=== PATIENT | male | born 1975 | race Caucasian/White ===

== ENCOUNTER 2020-03-30 21:47 | Emergency (ER) | payer SELFPAY ==
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
[2020-03-30 21:51] VITALS: BP 126/67; PULSE 60; RESP 20; TEMP 37.1; O2SAT 98
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
[2020-03-30 22:27] LABS: Hematocrit 43.4 % (42.0-52.0); Hemoglobin 14.5 g/dL (14.0-18.0); Mean Corpuscular HGB Conc 33.4 g/dl (32-36); Mean Corpuscular Hemoglobin 31.5 pg (26-34); Mean Corpuscular Volume 94.3 fl (80-100); Mean Platelet Volume 10.4 fl (7.4-10.4); Platelet Count Result 273 k/mm3 (150-375); Red Cell Distribution Width 14.5 % (11.5-14.5); White Blood Count 23.9 K/mm3 (4.5-10.0)
[2020-03-30] MEDS: TETANUS,DIPHTHERIA,AC PERTUSSIS ADULT (0.5 ML) BOOSTRIX IM (22:37)
[2020-03-30] MEDS: SODIUM CHLORIDE 0.9% IV 1,000 ML 999 ML IV CONT (22:38)
[2020-03-30 22:40] VITALS: BP 119/84; PULSE 68; RESP 20; O2SAT 99
[2020-03-30 22:40] LABS: Ethanol 84 mg/dL (<10)
[2020-03-30 22:42] LABS: Band Neutrophils Percent 2 % (0-6); Lymphocytes Absolute Manual 3.82 K/mm3 (1.1-4.5); Monocytes Absolute Manual 1.67 K/mm3 (0.1-0.90); Monocytes Percent Manual 7 % (3-9); Neutrophils Percent Manual 75 % (46-73); Platelet Estimate Adequate (Adequate); Total Cells Counted 100
[2020-03-30 23:00] LABS: Add Urine Microscopic? YES; Appearance Urine Clear (Clear); Bilirubin Urine Negative (Negative); Blood Urine Negative (Negative); Color Urine Yellow (Yellow); Glucose Urine UA Negative (Negative); Ketones Urine Negative (Negative); Leukocyte Esterase Ur Negative LEU/UL (Negative); Mucus Urine Rare /lpf; Nitrate Urine Negative (Negative); Protein Urine 1+ mg/dL (Negative); RBC Urine 0-2 /hpf (0-2); Specific Grav Ur 1.028 (1.001-1.035); Squamous Epithelial Cell Urine Rare /hpf (Few); WBC Urine 0-3 /hpf
[2020-03-30 23:02] LABS: Prothrombin Time 12.4 Seconds (11.1-14.7)
[2020-03-30 23:16] VITALS: BP 129/85; PULSE 76; RESP 16; O2SAT 97
[2020-03-30 23:17] LABS: Amphetamine Screen Urine Negative (Negative); Barbiturate Screen Urine Negative (Negative); Benzodiazepines Screen Urine Negative (Negative); Cannabinoid Screen Urine Positive (Negative); Cocaine Screen Urine Negative (Negative); Methadone Screen Urine Negative (Negative); Opiate Screen Urine Positive (Negative); Phencyclidine Screen Urine Negative (Negative)
[2020-03-30 23:19] LABS: Alanine Aminotransferase 23 U/L (4-50); Alkaline Phosphatase 75 U/L (38-126); Aspartate Amino Transferase 36 U/L (17-59); Bilirubin,Total 0.3 mg/dL (0.2-1.3); Blood Urea Nitrogen 16 mg/dL (9-20); Calcium 8.4 mg/dL (8.4-10.2); Carbon Dioxide 26 mmol/L (22-30); Chloride 100 mmol/L (98-107); Estimated Glomerular Filt Rate > 60; Glucose 108 mg/dL (75-110); Potassium 3.7 mmol/L (3.4-5.0); Sodium 132 mmol/L (137-145)
[2020-03-30 23:36] VITALS: BP 127/80; PULSE 72; RESP 16; O2SAT 97
--- NOTE | 2020-03-30 23:36 | PC.NURSE ---
2232 Called [facility] to transport patient. ETA [id number] Called [facility] to transport patient. [facility] and [facility] have no truck available this night.
[2020-03-31 00:05] VITALS: BP 114/81; PULSE 67; RESP 16; O2SAT 97
[2020-03-31 00:28] VITALS: BP 141/81; PULSE 69; RESP 16; O2SAT 96
== END 2020-03-31 00:29 | disposition short-term general hospital (02) ==
PROVIDERS: Emergency Provider Emergency Medicine; PCP Family Medicine
DX: S06.5X9A Traumatic subdural hemorrhage with loss of consciousness of unspecified duration, initial encounter (principal); S80.12XA Contusion of left lower leg, initial encounter; S80.11XA Contusion of right lower leg, initial encounter; I25.10 Atherosclerotic heart disease of native coronary artery without angina pectoris; I25.2 Old myocardial infarction; F17.210 Nicotine dependence, cigarettes, uncomplicated; Z23 Encounter for immunization; V86.55XA Driver of 3- or 4- wheeled all-terrain vehicle (ATV) injured in nontraffic accident, initial encounter
CPT/HCPCS: 36415; 70450; 70486; 72125; 80053; 80307; 81001; 85025; 85610; 86850; 86900; 86901; 90471; 90715; 96361; 96365; 99285; J0690; J7030; L0140

== ENCOUNTER 2025-03-07 10:03 | Outpatient (CLI) | payer OTHER, SELFPAY ==
--- NOTE | ~2025-03-07 | US_ITS ---
Abdominal Sonogram: Real-time sonographic imaging of the abdomen was performed. Clinical History: Abdominal pain Findings: The liver appears normal with no evidence of mass lesion or bile duct dilatation. Main por surinder vein demonstrates normal direction of flow. The spleen is normal in size without evidence of foca l lesion. The gallbladder is well distended, and appears normal with no evidence of gallstone or wal l thickening. The common bile duct measures 4 mm. The visualized pancreas, aorta, and IVC are unrema rkable. The right kidney measures 11.5 cm in length and the left kidney measures 11.5 cm. There is no hydronephrosis or renal calculus. Impression: Unremarkable abdominal ultrasound. Reviewed, dictated and finalized at location . Impression: Unremarkable abdominal ultrasound.
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
--- OUTSIDE RECORDS SUMMARY | 2025-03-07 10:25 | XMS_ITS | Encounter Summary ---
Author Organization [facility] Address [address] [place] [address] Phone Care Team Providers Care Business Performance Advisor Name Role Phone Niko Victoria MD Unavailable [phone] Marino Sethi Primary Care Provider [phone] Jai Hermosillo MD Unavailable [phone] Justen Browne MD Unavailable [phone] Encounter Details Date Type Department Care Team (Late st Contact Info) Description 11/12/2023 Telephone [facility] Bone Marrow Transplant [address], [place] [address] Vee Doan V. Social History Tobacco Use Types Packs/Day Years Used Date Smoking Tobacco: Some Days Cigarettes 0.1 20 Started: 11/19/2002; Last attempted to quit: 11/19/2022 Smokeless Tobacco: Never Alcohol Use Standard Drinks/Week Comments Not Currently 2 (1 standard drink = 0.6 oz pur e alcohol) [facility] Utilities Answer Date Recorded In the past 12 months has [employer], gas, oil, or water company threatened to shut off services in your home? No 10/27/2023 Social Connection and Isolation Panel [NHANES] A nswer Date Recorded In a typical week, how many times do you talk on the phone with family, friends, or neighbors? Three times a week 10/27/2023 How often do you get togethe r with friends or relatives? Patient unable to answer 10/27/2023 How often do you attend chur ch or synagogue services? Never 10/27/2023 Do you belong to any clubs o r organizations such as denominational groups, unions, fraternal or athletic groups, or school groups? No 10/27/2023 How often do you attend meet ings of the clubs or organizations you belong to? Never 10/27/2023 Are you , , di vorced, , never , or living with a partner? Patient unable to answer 10/27/2023 AUDIT-C Answer Date Recorded Frequency of Alcohol Consumption Not on file 10/21/2023 Q2: How many drinks containi ng alcohol do you have on a typical day when you are drinking? Patient does not drink Frequency of Binge Drinking Not on file 09/25 Overall Financial Resource Strain (CARDIA) Answe r Date Recorded How hard is it for you to pa y for the very basics like food, housing, medical care, and heating? Not very hard 10/27/2023 PHQ-2 Answer Date Recorded PHQ-2 Total Score 0 10/27/2023 Hunger Vital Sign Answer Date Recorded Within the past 12 months, y ou worried that your food would run out before you got the money to buy more. Never true 10/27/19 24 Within the past 12 months, t he food you bought just didn't last and you didn't have money to get more. Never true 10/27/2023 PRAPARE - Transportation Answer Date Re corded In the past 12 months, has l ack of transportation kept you from medical appointments or from getting medications? No 12/2023 In the past 12 months, has l ack of transportation kept you from meetings, work, or from getting things needed for daily living? No 10/27/2023 Housing Stability Vital Sign Answer Valente e Recorded In the last 12 months, was t here a time when you were not able to pay the mortgage or rent on time? No 10/27/2023 In the last 12 months, how many places have you lived? 1 10/27/2023 In the last 12 months, was t here a time when you did not have a steady place to sleep or slept in a mcfp (including now)? No 10/27/2023 Personal Safety Answer Date Recorded Getting School Help Needed Denies 10/08 Sex and Gender Information Value Date Recorded Sex Assigned at Not on file Legal Sex Male 4:05 AM GRAPHIC DESIGNER Gender Identity Male 12/03/2022 6:35 AM GRAPHIC DESIGNER Sexual Orientation Straight 12/03/2022 6: 35 AM GRAPHIC DESIGNER documented as of this encounter Plan of Treatment Not on file documented as of this encounter Visit Diagnoses Not on filedocumented in this encounter Additional Health Concerns Infection Onset Date Last Indicated Resolved Time COVID: Suspected 01/16/2024 01/16/2024 01/16/2024 5:21 PM CDT COVID: Suspected 02/03/2024 02/03/2024 02/03/2024 11:19 PM CDT documented as of this encounter Care Teams Business Performance Advisor Relationship Specialty Start Date End Date Marino Sethi PA [address] [place] [address] PCP - General Family Practice 10/20/23 Niko Victoria MD [address] [address] Consulting Physician Interventional Cardiology 11/18/22 Jai Hermosillo MD [address] [place] [address] [place] [address] Referring Physician Hematology and Oncology 11/10/23 Justen Browne MD [address] [place] [address] [place] [address] Consulting Physician Medical Oncology 11/10/23 documented as of this encounter
--- OUTSIDE RECORDS SUMMARY | 2025-03-07 10:26 | XMS_ITS | Data Portability ---
Author Organization [facility] Address [address] [place] [address] Care Team Providers Care Product Examiner Name Role Phone AL SETHI Primary Care Provider Assessment No assessment recorded. Plan of Treatment Reminders Order Date Submit Date Provider Last Modified By Organization Details Last Modified Time Details Appointments None recorded. Lab CBC 2024 025 [facility], [address] [facility] [address], [address], 5 10:24:51 CMP, serum or plasma 2024 025 [facility], [address] [facility] [address], [address], 5 10:24:49 lipid panel, serum 2024 025 [facility], [address] [facility] [address], [address], 5 10:24:48 CBC 2022 023 [email or web address] [facility], [address] [facility] [address], [place], [address], 3 12:55:37 CMP, serum or plasma 2022 023 [email or web address] [facility], [address] [facility] [address], [place], [address], 3 12:55:45 lipid panel, serum 2022 023 [facility], [address] [address], [place], [address], 3 12:55:51 HbA1c (hemoglob in A1c), blood 2022 023 [facility] In-Office Order, Internal Use Only DO Not Attach Compendium DO Not Attach Compendium, Do Not Delete/merge, [id number] 11:43:44 influenza virus A + B + SARS-CoV- 2 (COVID19) Ag panel, rapid IA, upper respirato ry specimen 2022 023 [facility] In-Office Order, Internal Use Only DO Not Attach Compendium DO Not Attach Compendium, Do Not Delete/merge, [id number] 3 11:18:22 Referral wound care referral 2022 023 [facility], [facility], [place], [address], 3 12:56:08 Procedures None recorded. Surgeries None recorded. Imaging US, abdomen, complete [address] [facility], [address] [place], [address], 5 14:32:23 Medication Orders tramadol 50 mg tablet 2024 025 [id number], [address], [place], [address], 5 14:24:51 buspirone 5 mg tablet 2023 024 [id number], [address] [facility], [place], [address], 5 13:59:06 sulfameth oxazole 800 mg-trimet hoprim 160 mg tablet 2022 023 [id number], [address] [place], [address], 13:57:10 Patient TargetsNo targets recorded. Patient Instructions Encounter Date Encounter Id Patient Instructions Last Modified By Organization Details Last Modified Time 10/08/2023 [id number] things to do i f you've been exposed to covid-19 jnanney Not available 10/08/2023 10:37:32 carpal tunnel syndrome: care instructions jnanney Not available 10/08/2023 10:36:40 carpal tunnel syndrome: exercises jnanney Not available 10/08/2023 10:36:40 12/10/2023 [id number] A healthy lifestyle: care instructions jnanney Not available 12/10/2023 11:47:30 Acute Myeloid Leukemia: Care Instructions jnanney Not available 12/10/2023 11:47:30 03/06/2025 [id number] angina: care instructions jnanney Not available 03/06/2025 14:24:45 Reason for Referral Referring Physician: Al sanabria, Family Medicine, Encounter Date: 10/08/2023 Results Created Date Observation Date Name Description Value Unit Range Abnormal Flag Note LastModifiedBy Organization Detail LastModifiedTime 10/08/2010/08/2023 influ jose virus A + B + SARS- CoV-2 (COVI D19) Ag panel , rapid IA, upper respi rator y speci men Flu A negati ve Not Available In-Office Order Internal Use Only DO Not Attach Compendium DO Not Attach Compendium, Do Not Delete/merge, [id number] 10/08/2023 10:37:28 10/08/20 23 10/08/2023 influ jose virus A + B + SARS- CoV-2 (COVI D19) Ag panel , rapid IA, upper respi rator y speci men Flu B negati ve Not Available In-Office Order Internal Use Only DO Not Attach Compendium DO Not Attach Compendium, Do Not Delete/merge, [id number] 10/08/2023 10:37:28 10/08/20 23 10/08/2023 influ jose virus A + B + SARS- CoV-2 (COVI D19) Ag panel , rapid IA, upper respi rator y speci men Rapid SARS CoV 2 Ag, QL IA, respiratory specimen negati ve Not Available In-Office Order Internal Use Only DO Not Attach Compendium DO Not Attach Compendium, Do Not Delete/merge, [id number] 10/08/2023 10:37:28 Result Notes None recorded. Procedures Surgical History Date Name Laterality Status Provider Name and Address Organization Details Recorded Time procedure on kidney completed Nasima Oliva MA [facility] 10/08/2023 10:03:11 Angioplasty With Stent completed Nasima Oliva MA [facility] 10/08/2023 10:03:47 Imaging Results None recorded. Procedure Notes None recorded. Medical Equipment None Reported. Allergies Allergen ID Allergen Name Allergen Category Reaction Reaction Severity Criticality Documentation Date Start Date Code Code System Note Provider Name and Address Organization Details Recorded Time [id number] meropenem medicatio n rash Not available Not available 12/10/2023 01314 RxNorm Claudia Cash MA [facility] 11:21:25 Medications Name Sig Start Date Stop Date Status Note LastModified by Organization Details LastModified Time amoxicillin 500 mg capsule TAKE 1 CAPSULE BY MOUTH EVERY 8 HOURS 10/08 completed Not Available Not Available Not Available buspirone 5 mg tablet TAKE 1 TABLET BY MOUTH THREE TIMES A DAY, NEEDS APPT BEFORE ANY MORE REFILLS 03/06 completed Not Available Not Available Not Available atorvastati n 80 mg tablet TAKE 1 TABLET BY MOUTH EVERY DAY AT NIGHT active Not Available Not Available No t Available nystatin 100,000 unit/mL oral suspension 03/06 completed Not Available Not Available Not Available acetaminoph en 325 mg tablet Take 2 tablets as needed by oral route. active Not Available Not Available No t Available carvedilol 6.25 mg tablet TAKE 1 TABLET BY MOUTH TWICE A DAY WITH MEALS active Not Available Not Available No t Available doxycycline hyclate 100 mg capsule TAKE 1 TABLET/CA PSULE (100 MG TOTAL) BY MOUTH 2 (TWO) TIMES A DAY FOR 10 DAYS 03/06 completed Not Available Not Available Not Available fluconazole 200 mg tablet 03/06 completed Not Available Not Available Not Available cyanocobala min (vit B-12) 1,000 mcg tablet Take by oral route. active Not Available Not Available No t Available clopidogrel 75 mg tablet TAKE 1 TABLET BY MOUTH EVERY DAY active Not Available Not Available No t Available amlodipine 5 mg tablet TAKE 1 TABLET (5 MG TOTAL) BY MOUTH DAILY. 10/08 completed Not Available Not Available Not Available prochlorper azine maleate 10 mg tablet TAKE 1 TABLET BY MOUTH EVERY 4 HOURS NEEDED FOR NAUSEA OR VOMITING (USE FIRST) 03/06 completed Not Available Not Available Not Available acyclovir 400 mg tablet TAKE 1 TABLET BY MOUTH THREE TIMES A DAY 03/06 completed Not Available Not Available Not Available ciprofloxac in 500 mg tablet TAKE 1 TABLET BY MOUTH TWICE A DAY 03/06 completed Not Available Not Available Not Available sulfamethox azole 800 mg-trimetho prim 160 mg tablet TAKE 1 TABLET BY MOUTH EVERY 12 HOURS FOR 10 DAYS 03/06 completed Not Available Not Available Not Available tramadol 50 mg tablet Take 1 tablet 3 times a day by oral route as needed for 30 days. 2024 active Not Available Not Available Not Avai lable TobraDex 0.3 %-0.1 % eye ointment APPLY 1/2 INCH TO EACH EYE BEFORE BED FOR 14 DAYS 03/06 completed Not Available Not Available Not Available carvedilol 3.125 mg tablet active Not Available Not Available Not Available ondansetron 8 mg disintegrat ing tablet TAKE 1 TABLET BY MOUTH EVERY 8 HOURS NEEDED FOR NAUSEA OR VOMITING. 03/06 completed Not Available Not Available Not Available prednisolon e acetate 1 % eye drops,suspe nsion ADMINISTE R 2 DROPS INTO BOTH EYES 4 (FOUR) TIMES A DAY FOR 50 DOSES 03/06 completed Not Available Not Available Not Available doxycycline monohydrate 100 mg capsule TAKE 1 CAPSULE (100 MG TOTAL) BY MOUTH TWICE A DAY FOR 10 DOSES 03/06 completed Not Available Not Available Not Available pantoprazol e 40 mg tablet,blank yed release TAKE 1 TABLET BY MOUTH TWICE A DAY 03/06 completed Not Available Not Available Not Available nicotine 21 mg/24 hr daily transdermal patch active Not Available Not Available Not Available nitroglycer in 0.[address] 1 TABLET UNDER TONGUE EVERY 5 MIN NEEDED FOR CHEST PAIN MAY REPEAT EVERY 5MIN UP TO 3 DOSES active Not Available Not Available No t Available aspirin 81 mg tablet Take by oral route. active Not Available Not Available No t Available amoxicillin 875 mg-nicola fisher clavulanate 125 mg tablet TAKE 1 TABLET BY MOUTH TWICE A DAY FOR 10 DAYS 03/06 completed Not Available Not Available Not Available tobramycin 0.3 %-dexametha sone 0.1 % eye drops,suspe nsion 03/06 completed Not Available Not Available Not Available oxycodone 5 mg tablet TAKE 1 TABLET BY MOUTH 4 TIMES A DAY NEEDED FOR PAIN 03/06 completed Not Available Not Available Not Available neomycin 3.5 mg/g-polymy melisa B 10,000 unit/g-dexa meth 0.1 % eye oint 03/06 completed Not Available Not Available Not Available lactulose 10 gram/15 mL oral solution TAKE 30 ML (20 G) BY MOUTH TWICE A DAY 03/06 completed Not Available Not Available Not Available Entresto 24 mg-26 mg tablet TAKE 1 TABLET BY MOUTH TWICE A DAY active Not Available Not Available No t Available Vitals Date Recorded Body weight Body mass index (BMI) Body height Respiratory rate Heart rate Oxygen saturation Oxygen saturation in Arterial blood by Pulse oximetry Systolic blood pressure Diastolic blood pressure Provider Name and Address Organization Details Last Updated DateTime 3 68842.1 g 26.1 kg/m2 179.07 cm 16 /min 75 /min 93 % 93 % 101 mm[Hg] 70 mm[Hg] Nasima Oliva [place] [facility] 3 10:07:57 Date Recorded Body height Body mass index (BMI) Body weight Oxygen saturation Oxygen saturation in Arterial blood by Pulse oximetry Heart rate Respiratory rate Body temperature Systolic blood pressure Diastolic blood pressure Provider Name and Address Organization Details Last Updated DateTime 4 179.07 cm 25.1 kg/m2 27198 g 98 % 98 % 93 /min 16 /min 98.1 [degF] 138 mm[Hg] 99 mm[Hg] Claudia Cash MA [place] - [facility] 4 11:27:31 Date Recorded Body height Body mass index (BMI) Body weight Oxygen saturation Oxygen saturation in Arterial blood by Pulse oximetry Heart rate Respiratory rate Provider Name and Address Organization Details Last Updated DateTime 5 179.07 cm 29.6 kg/m2 57555.8 1 g 95 % 95 % 88 /min 16 /min Claudia Cash MA [place] - [facility] 14:03:01 Date Recorded Systolic blood pressure Diastolic blood pressure Provider Name and Address Organization Details Last Updated DateTime 03/06/2025 112 mm[Hg] 82 mm[Hg] Eve Ambrosio MA [facility] 03/06/2025 14:05:59 Social History Question Answer Notes LastModified by Organizat ion Details LastModified Time Tobacco Smoking Status Current Every Day Smoker Had a couple here Claudia Cash MA null, [place] - [facility] 03/06/2025 14:00:08 Are You Blind Or Do You Have Difficulty Seeing? Yes Information not available 10/08/2023 What Is Your Level Of Caffeine Consumption? Heavy Information not available 10/08/2023 Are You Deaf Or Do You Have Serious Difficulty Hearing? No Information not available 10/08/2023 What Type Of Diet Are You Following? REGULAR Information not available 10/08/2023 Are There Any Guns Present In Your Home? Yes Locked In A Safe Information not available 10/08/2023 What Was The Date Of Your Most Recent Tobacco Screening? 03/06/2025 Information not available 03/06/2025 How Many Children Do You Have? 0 Information not available 10/08/2023 What Is Your Current Pack Years? 30ormorepack years Information not available 10/08/2023 What Is Your Relationship Status? Information not available 10/08/2023 Do You Use Your Seat Belt Or Car Seat Routinely? Yes Information not available 10/08/2023 Do You Have Smoke And Carbon Monoxide Detectors In Your Home? Yes Information not available 10/08/2023 At What Age Did You Start Smoking Tobacco? 17 Information not available 10/08/2023 Are You Passively Exposed To Smoke? Yes Information not available 10/08/2023 How Much Tobacco Do You Smoke? 0.5 PPD Information not available 10/08/2023 Do You Use Sunscreen Routinely? Yes Information not available 10/08/2023 Has Tobacco Cessation Counseling Been Provided? Yes Information not available 10/08/2023 On What Date Was Tobacco Cessation Counseling Provided? 03/06/2025 Information not available 03/06/2025 How Many Years Have You Smoked Tobacco? 30 Information not available 10/08/2023 Sex: Male Functional Status Question Answer Note LastModified by Organizat ion Details LastModified Time Do you use any illicit or recreational drugs? Yes [place] Information not available 10/08/2023 Do you or have you ever used any other forms of tobacco or nicotine? No Information not available 10/08/2023 What is your level of alcohol consumption? None Information not available 10/08/2023 Are you currently employed? No Information not available 12/10/2023 Are you able to care for yourself? Yes Information not available 10/08/2023 What is your exercise level? Occasional Information not available 10/08/2023 Mental Status Question Answer Note LastModified by Organization D etails LastModified Time Do you feel stressed (tense, restless, nervous, or anxious, or unable to sleep at night)? [id number] Information not available 10/08/2023 Family History Relationship Description Onset Age of this Age Resolved Age Notes LastModified by Organization Details LastModified Time Father No current problems or disability [email or web address] Not available 11/25 11:24:49 Mother No current problems or disability [email or web address] Not available 11/25 11:24:50 Medical History Condition Response Coronary Artery Disease Y Other N High Blood Pressure Y Atrial Fibrillation N Kidney or Bladder Problems Y Thyroid Problems N Blood Clots N COPD N Depression N GI Problems N Skin Problems N Eating Disorder N Anemia N Heart Attack (MN) Y Anxiety Disorder N Diabetes N Muscle, Joint, or Bone Problems N Arthritis N Seizures/Epilepsy N Acid Reflux (GERD) N Cancer N Stroke N Asthma N Allergies N ADHD N Substance Abuse N High Cholesterol Y Hepatitis N Liver Disease N Schizophrenia N Headaches N Heart Failure Y Osteoporosis N Immunizations Vaccine Type Date Status Note Provider Nam e and Address Organization Details Recorded Time COVID-19, mRNA, LNP-S, PF, 30 mcg/0.3 mL dose 06/20/2021 completed Not Available [facility] 4 00:40:30 COVID-19, mRNA, LNP-S, PF, 30 mcg/0.3 mL dose 07/12/2021 completed Not Available [facility] 4 00:40:30 Tdap 03/30/2020 completed Eve Ambrosio MA [facility], [place] - [facility] 10/19/2023 12:56:23 Past Encounters Encounter ID Performer Location Encounter Start Date Encounter Closed Date Diagnosis/Indication Diagnosis SNOMED-CT Code Diagnosis ICD10 Code Diagnosis Note [id number] Al Sethi PA-C [facility] [address] [place] [address] 10/08/2023 09:41:51 10/13/2023 09:13:17 Multi vessel coronary artery disease 977855273 I25.10 addendum.. patient declined reports onset of chest pain...ekg ordered and nitro admin at 9:45...EMS was called..4 81mg ASA at 9:49 Perianal abscess 4739505 5 K61.0 Carpal fernando carson syndrome of right wrist 6661165213 25872 G56.01 Exposure t o SARS-CoV-2 525729540 Z20.993 [id number] Al Sethi PA-C [facility] [address] [place] [address] 12/10/2023 11:12:42 12/14/2023 10:04:19 Acute myeloid leukemia, disease 19507300 C92.00 Mixed anxi ety and depressive disorder 769018507 F41.8 Overweight 880595524 E66 .3 [id number] Oswaldo Cobos MD [facility] [address] [place] [address] 03/06/2025 13:39:38 03/06/2025 14:28:24 Acute myeloid leukemia in remission 85989804 C92.01 Left upper quadrant pain 400632094 R10.12 Angina pectoris 30142209 0 I20.9 Overweight in adulthood with body mass index of 25 or more but less than 30 796222322 Z68.29 History of myocardial infarction 622007821 I25.2 Multi vess el coronary artery disease 205356987 I25.10 addendum.. patient declined reports onset of chest pain...ekg ordered and nitro admin at 9:45...EMS was called..4 81mg ASA at 9:49 Health Concerns Section Related Observation LastModified by Organization Detai ls LastModified Time None Recorded Concern Status LastModified by Organization Details LastModified Time None Recorded Advance Directives Directive None Recorded Payers Encounter Date Sequence Insurance Name Policy Number Policy [place] Covered Member ID [place] Member ID Guarantor Name 10/08/2023 1 [employer] [id number] Hilario Manuel [id number] Hilario Manuel 12/10/2023 1 [employer] [id number] Hilario Manuel [id number] Hilario Manuel 03/06/2025 1 [facility] [id number] Hilario Manuel [id number] Hilario Manuel Notes Date Note Type Note Provider Name and Address Organization Details Recorded Time 10/08/2023 text/html new patient...hong s a boil on buttocks...hx of MN 8 years ago...seeing cardiology ..Kartik...also chest pains are back to daily...sister tested positive for covid he feels like Nasima Oliva MA [facility], [facility] 10/08/2023 11:54:05 12/10/2023 text/html has AML...just finished chemo...having anxiety as well Al Sethi PA-C Attn: Accounting,[address] [place], [address], [facility] 12/10/2023 11:48:31 03/06/2025 text/html hx of AML...also had MN 10 years...has appt with oncology in march..has developed general malaise and feels pretty poor...has abdominal distension...sees GI in February..has stabbing pain in left abdomen sometimes intense enough to put him down..also reports chest pains coming on again that has been present from 10 years ago..sees cardiology had a stent in the maker... Al Sethi PA-C Attn: Accounting,[address] [facility], [place], [address], [facility] 03/06/2025 14:28:20
--- OUTSIDE RECORDS SUMMARY | 2025-03-07 10:26 | XMS_ITS | Clinical Summary ---
Author Organization [facility] Address [address] [place] [address] Phone Care Team Providers Care Screw Cutter Name Role Phone Ty Diane MD Primary Care Provider [phone] Allergies No known active allergies Medications ATORVASTATIN CALCIUM PO Take by mouth. Active Clopidogrel Bisulfate (PLAVIX PO) Take by mouth. Active Carvedilol (COREG PO) Take by mouth. Active FLUoxetine HCl (PROZAC PO) Take by mouth. Active Social History Tobacco Use Types Packs/Day Years Used Date Smoking Tobacco: Never Assessed Sex and Gender Information Value Date Recorded Sex Assigned at Not on file Legal Sex Male 8:49 PM CDT Gender Identity Not on file Sexual Orientation Not on file Last Filed Vital Signs Vital Sign Reading Time Taken Comments Blood Pressure 105/70 10/14/2022 8:30 AM MANGA ARTIST Pulse 55 10/14/2022 8:30 AM MANGA ARTIST Temperature 36.8 C (98.2 F) 10/14/2022 5:14 AM MANGA ARTIST Respiratory Rate 11 10/14/2022 8:30 AM MANGA ARTIST Oxygen Saturation 96% 10/14/2022 8:30 AM MANGA ARTIST Inhaled Oxygen Concentration - - Weight 74.8 kg (165 lb) 10/14/2022 5:14 AM MANGA ARTIST Height 177.8 cm (5' 10 ) 10/14/2022 5:14 AM MANGA ARTIST Body Mass Index 23.68 10/14/2022 5:14 AM MANGA ARTIST Plan of Treatment Health Maintenance Due Date Last Done Comments Hepatitis C Virus (HCV) Screening 1975 Hepatitis B Immunization (1 of 3 - 19+ 3-dose series) 1995 Colonoscopy 2021 Colorectal Cancer Screening 2021 SARS-COV-2 Immunization ( season) 2024 07/12/2021, 06/20/2021 Influenza Immunization (Season Ended) 2025 Respiratory Syncytial Virus (RSV) Immunization (Adult) (1 - 1-dose 75+ series) 2051 DTaP/Tdap/Td Immunization Discontinued 03/30/2020 TdaP Immunization Completed 03/30/2020 Meningococcal Immunization (ACWY) Aged Out No longer eligible based on patient's age to complete this topic Pneumococcal Immunization Combined Aged Out No longer eligible based on patient's age to complete this topic Rotavirus Immunization Aged Out No lo nger eligible based on patient's age to complete this topic Insurance [facility] Care Teams Screw Cutter Relationship Specialty Start Date End Date Ty Diane MD [address] [place] [id number] PCP - General Family Medicine 08/27/20
--- OUTSIDE RECORDS SUMMARY | 2025-03-07 10:26 | XMS_ITS ---
Author Organization [facility] Address [address] [place] [address] Care Team Providers Care Oven Unloader Name Role Phone Niko Victoria MD Unavailable [phone] Marino Sethi Primary Care Provider [phone] Jai Hermosillo MD Unavailable [phone] Justen Browne MD Unavailable [phone] Active Problems Patient Care Coordination No te Formatting of this note is d ifferent from the original. BMT Inpatient Care Coordination Overview Diagnosis AML Floor 8800 Treatment Plan HDAC Reason for Admission C4 HIDAC (6d) Transplant/IEC Planning BMT/IEC Plan HLA typing/IDMs [x] HLA 10/20, URD/sib 10/21 Insurance Approval [] Discharge Planning Anticipated Discharge Date 03/19/24 Patient Education Completed [] Issue to be Resolved Before Discharge Discharge Disposition home Requests Sent to Case Management, Pharmacy PA Team, or Medical Assistants Post-Discharge Follow-Up Living Situation/Distance from [place], [place] <1hr Caregiver Lab/Transfusion Frequency Twice weekly @ [facility] Lab/Plt/Bt1 (@ [facility]): 03/23; 03/27; 03/30; 04/03; 04/06; 04/10; 04/13 Venous Access & Care Local Oncologist Contact Phone: Fax: Post-Discharge Office Visit (H30) [facility] - 04/17/24 Neulasta inj @ [facility] (auth approved)- 03/21 Miscellaneous Notes: Problem Noted Date Diagnosed Date Pain in perirectal area 01/17/2024 Assessment & Plan (01/17/2024 9:06 PM CDT): -patient presents with complaints of pain in perirectal area, same site where he had an abscess in the past -on exam has exquisite tenderness area of induration with opening but no discharge -consult Colorectal surgery , discuss if additional imaging needed -blood cultures 3-24 broaden antibiotic coverage - cefepime (increase dose to 2 g Q hours) add Flagyl p.o. and IV vancomycin and monitor -seen by CRS , no drainable collection continue antibiotics, aggressive bowel regimen - on 01/16 stable, afebrile blood culture NGTD change to p.o. and biotics Augmentin 875 mg p.o. b.i.d. Kidney stones 01/17/2024 Assessment & Plan (01/17/2024 9:07 PM CDT): Reported flank pain that has resolved, - CT imaging in [facility] showing non obstructive stones in the kidneys and mild left distal ureteral stranding and fluid compatible with recently passed stone, UA bland and did not reflex to cultures Bleeding gums 01/16/2024 Assessment & Plan (01/20/2024 11:55 AM CDT): -In setting of severe thrombocytopenia - s/p 1 unit platelets in [facility] - hold aspirin - transfuse another unit of platelets -change threshold for platelet transfusion to keep above 30 K -check fibrinogen = 628 and coags - Amicar topical compounded swish and spit -continue cefepime,add Flagyl for anaerobic coverage -follow-up blood cultures NGTD -check a Panorex : large dental caries with periapical lucency at tooth 32 -consulted pack press operator, tooth extraction today 01/19. Ensured platelet count is >50K for the procedure. 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 GERD (gastroesophageal reflux disease) 4 Microcystic edema of cornea / chemotherapy Assessment & Plan (12/09/2023 12:04 PM MILK RUNNER): -new pt; same day add on for eye pain/irritation/tearing OU x 1 day -s/p 2nd cytarabine infusion x 12/07/2023 for AML (+)diffuse MCE and SPEE OU noted today; rare cell likely attributed to K findings vs true uveitis -currently using pred 6x/day OU and Refresh q30min OU -discussed findings with pt today; discussed possible tx including drops/ungs vs BCL placement -pt elects to defer BCL placement today given never having worn them before and also dependent on others for transportation purposes; if he had an issue with BCL, would be difficult to coordinate an appt for follow-up -will switch gtts to tobradex 6x/day OU; also use tobradex dayanna qhs OU -switch to PFATs (coupon and sample given today); ok to use as frequently as needed -correspondence to Dr. Browne today -will plan to follow-up the Wednesday before his next scheduled infusion; will consider deferring tx if s/s still severe -RTC 2 weeks (12/27/2023) with me at the [facility] anterior segment check; sooner with issues -consider BCL placement in the interim if pt returns earlier than scheduled Persons encountering health services in other specified circumstances 11/22/2023 Severe malnutrition 11/10/2023 Rash and nonspecific skin eruption 11/03/2023 Assessment & Plan (11/08/2023 8:31 AM MILK RUNNER): Rash extending from neck, b/ upper extremities and chest/upper abdomen. Mucous membranes spared, back spared. Mild discomfort and pruritus. - Appears consistent with drug rash - Switch antibiotics (likely culprit is meropenem). Ceftazidime has lower cross-reactivity to -penem - TCM ointment ordered, sarna cream for pruritus - Improving on 11/07 - Discuss with derm if becomes severe, develops blisters, facial edema, etc Neutropenic fever 11/02/2023 Assessment & Plan (11/08/2023 8:35 AM MILK RUNNER): See 'streptococcal bacteremia' - vanc/gil (11/01 -11/03); micafungin (11/01 - ); zosyn (11/03 - 11/06)[due to drug rash]; ceftazidime (11/06 - ), linezolid (11/08 - ) - blood cx from 10/30 growing Strep salivarius in one bottle so far -- patient noted to have dental caries / rotting teeth - repeat Bcx 10/31, 11/01. 11/02 NGTD - CT A/P: Wall thickening and mucosal hyperenhancement of the jejunum, which could represent an infectious/inflammatory colitis. Mild hydronephrosis of the left kidney with possible urothelial enhancement of the proximal ureter. Innumerable centrilobular groundglass nodules in both lung bases - Fungal serologies negative: aspergillus, crypto, histo, blasto, cocci - APAP PRN fevers Streptococcal bacteremia 10/30/2023 Assessment & Plan (11/08/2023 8:28 AM MILK RUNNER): First fever on10/29. Lactate 0.6. RVP negative, UA bland, CXR clear (10/30). Endorses nausea and some diarrhea which started a couple of days prior to the fever. - CT A/P: Wall thickening and mucosal hyperenhancement of the jejunum, which could represent an infectious/inflammatory colitis. Mild hydronephrosis of the left kidney with possible urothelial enhancement of the proximal ureter. Innumerable centrilobular groundglass nodules in both lung bases - Blood cx from 10/30 grew Strep salivarius x 1 -- patient noted to have dental caries / rotting teeth; All repeat blood cultures are negative or no growth to date. - abx: empiric cefe/JENNINGS/vanc (10/30 - 11/01) --> - vanc/gil (11/01 -11/03); micafungin (11/01 - ); zosyn (11/03 - 11/06)[due to drug rash] - Now on Linezolid (11/08 - ); And ceftazidime (11/06 - ); increased ceftazidime to 2g on 11/08 - APAP PRN fevers Acute myeloid leukemia not having achieved remis caro 10/19/2023 Assessment & Plan (11/06/2023 4:57 PM MILK RUNNER): Presents with fatigue and new pancytopenia. Bone marrow biopsy (12/21) consistent with AML w/ 22.8% blasts. PB FLT3 10/19 negative -repeat BM biopsy 10/20/23 w/ poor sampling but demonstrated 15% myeloblasts by FC. ChromoSeq: NPM1, VAF 11%. Favorable - IR consulted. [place] placement 10/21/23 - Repeat TTE 10/20/23 w/ EF 53% - 7+3 induction (D1 = 10/22) - Day 14 BMBx pending. - OI ppx: ACV - supportive transfusions Pancytopenia 10/11/2023 Chest pain, unspecified type 11/15/2022 Assessment & Plan (10/23/2023 1:11 PM MILK RUNNER): Mostly atypical (brief, sharp) -serial trops negative. TTE 10/20/23 without WMA -Cardiology consulted. Low suspicion for cardiac ischemia. UPJ obstruction, acquired 01/06/2019 Overview (01/06/2019): Added automatically from request for surgery [id number] PVC's (premature ventricular contractions) 04/21 Impotence of organic origin 09/01/2016 Overview (01/29/2017): Erectile dysfunction, unspecified erectile dysfunction type CAD (coronary artery disease) 03/05/2016 Overview (01/29/2017): Coronary artery disease involving [place] coronary artery of [place] heart without angina pectoris Assessment & Plan (02/03/2024 6:23 PM CDT): status post PCI with JT to mid LAD in 2015. - ASA held for tcp - c/w home coreg and lipitor - Previously on Entresto, held for hypotension during previous admission. Assessment & Plan (10/26/2023 2:04 PM MILK RUNNER): S/p JT to LAD in 2015. - Repeat catheterization 11/16 with minimal disease - Holding ASA and plavix given thrombocytopenia - Continue statin - ARNI / BB as elsewhere Hyperlipidemia LDL goal <70 03/05/2016 Overview (01/29/2017): Hyperlipidemia LDL goal <70 Tobacco abuse 03/05/2016 Overview (01/29/2017): History of tobacco abuse Assessment & Plan (10/20/2023 1:27 AM MILK RUNNER): Reports 1ppd history for ~20 years, recently decreased to 1/2ppd. - Encouraged abstinence - nicotine patch ordered Chest pain at rest 03/05/2016 Overview (01/29/2017): Chest pain at rest Cardiomyopathy, ischemic 03/05/2016 Overview (01/29/2017): Ischemic cardiomyopathy Assessment & Plan (01/17/2024 9:08 PM CDT): -coronary artery disease status post PCI with JT to mid LAD in 2015 At home on asa 81 mg p.o. q.day ,Coreg 3.125 mg p.o. b.i.d. , atorvastatin 80 mg p.o. q.day Previously on Entresto, held for hypotension during previous admission -hold aspirin in setting of severe thrombocytopenia, resume when platelets above 50 K and no bleeding -continue Lipitor 80 mg p.o. q.day, Coreg 3.125 b.i.d. Continue to hold Entresto Assessment & Plan (11/08/2023 8:35 AM MILK RUNNER): TTE 12/2022 previously with LVEF 44% and mod LV dysfunction in setting of prior [place] and CAD. Repeat TTE 10/20/23 w/ EF 53% -no clinical findings c/f heart failure - Cards previously consulted. Appreciate recs. - Holding Entresto ISO bradycardia, normotension, GI volume losses - Resumed coreg on 11/07 Fatigue due to treatment 03/05/2016 Overview (01/29/2017): Fatigue due to treatment Current Treatment and Therapy Plans BMT Adult Blood and Platelet Administration for Inpatient* Plan Start Date: 12/31/2023 Plan Provider:Kary Galarza NP Linked Problems Acute myeloid leukemia not h aving achieved remission (HCC) Treatment Medications No medications scheduled. Electrolyte Replacement & Hydration Therapy Plan* Plan Start Date:11/12/2023 Plan Provider:Justen Browne MD Linked Problems Acute myeloid leukemia not h aving achieved remission (HCC) Treatment Medications No medications scheduled. IV Maintenance Therapy Plan* Plan Start Date:01/16/2024 Plan Provider:Justen Browne MD Linked Problems Acute myeloid leukemia not h aving achieved remission (HCC) Treatment Medications No medications scheduled. Other Current Plans Adult BMT/ONC - Blood and/or Platelet Administration for Outpatient* Plan Start Date:12/16/2023 Plan Provider:Justen Browne MD Linked Problems Pancytopenia (HCC) Treatment Medications No medications scheduled. Antibiotic Standing Orders* Plan Start Date:03/30/2024 Plan Provider:Justen Browne MD Linked Problems Neutropenic fever Treatment Medications No medications scheduled. Past Treatment and Therapy Plans BMT/ONC IP BLOOD PRODUCTS Plan Name Start Date Discontinue Date Treatment Medications Discontinue Reason Plan Provider BMT Adult Blood and Platelet Administration for Inpatient 3 11/13/2023 No medications scheduled. Patient Discharged Lion Thompson MD Oncology Chemotherapy Treatment Plan Name Start Date Discontinue Date Treatment Medications Discontinue Reason Plan Provider Cycles - INPT - RSH - Heme/BMT - HiDAC Cohort A or B, All Doses Inpatient 4 05/17/2024 cytarabine (JUSTYNA-C) IVPB (for doses <1,000 mg/m2)cytarabine (JUSTYNA-C,CYTOSAR-U) Therapy Complete Justen Browne MD 4 of 4 cycles started INPT - High Dose Cytarabine (D1, D2, D3) +/- Midostaurin 28 day cycles - AML 4 11/29/2023 cytarabine (JUSTYNA-C,CYTOSAR-U) Change in Level of Care Justen Browne MD Treatment not started INPT - Standard-Dose Cytarabine CIVI / IDArubicin (7+3) 1 Cycle - AML 023 11/22/2023 cytarabine (JUSTYNA-C) infusionIDArubicin (IDAMYCIN) Therapy Complete Justen Browne MD 1 of 1 cycle started Lifetime Dose Tracking * Chemical Lifetime Dose Automatic Entry Manual Entr y idarubicin 37.507 mg/m2 (75 mg) 37.507 mg/m2 (75 mg) 0 mg/m2 (0 mg) Fluoro Time 0.873 minutes 0.873 minutes 0 minutes doxorubicin isotoxic equivalent (Please manually verify calculation) 187.537 mg/m2 (375 mg) 187.537 mg/m2 (375 mg) 0 mg/m2 (0 mg) Air kerma at the reference point (Ka,r) 264.399 mGy 2.399 mGy 262 mGy DLP 1,899 mGycm 1,899 mGycm 0 mGycm Resolved Problems Problem Noted Date Diagnosed Date Resolved Date AML (acute myeloid leukemia) in remission 02/03/2024 06/15/2024 Assessment & Plan (02/03/2024 6:21 PM CDT): 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 BM 10/20/23 with 15% blasts by flow and NPM1 mutation with VAF 11% by Chromoseq;s/p induction 7+3 (D1: 10/22/23). Post induction BM chemoablated with mild increase in CD3-positive blasts; day 30 BM normocellular with trilineage hematopoiesis , no evidence of blasts by morphology or FC. FISH/cytogenetics showed normal diploid cytogenetics and myeloseq showed clearance of the NPM1 mutation. On ClinSeq for AML mutation clearance trial ([id number]). S/p 2 cycles HiDAC. - Now admits for HiDAC C3, D1 02/02. - OI ppx: ACV, fluconazole - Ocular ppx: Pred Forte gtts per protocol. 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 Post induction BM chemoablated with mild increase in CD3-positive blasts; day 30 BM normocellular with trilineage hematopoiesis , no evidence of blasts by morphology or FC. FISH/cytogenetics showed normal diploid cytogenetics and myeloseq showed clearance of the NPM1 mutation. On ClinSeq for AML mutation clearance trial ([id number]).Cycle 1 complicated by ocular toxicity s/p C2 HiDAC on Clinseq trial; D1 12/29/23 - OI ppx: ACV, fluconazole -Transfuse per BMT protocol
--- OUTSIDE RECORDS SUMMARY | 2025-03-07 10:26 | XMS_ITS | Referral Summary ---
Author Organization [facility] Address [address] [place] [address] Care Team Providers Care Special Education Educational Assistant Name Role Phone Niko Victoria MD Unavailable [phone] Marino Sethi Primary Care Provider [phone] Jai Hermosillo MD Unavailable [phone] Justen Browne MD Unavailable [phone] Encounters Date Type Department Care Team Description 01/30/2025 Telephone [facility] Floor [address] [place] [address] Leslye Dimas RN 01/30/2025 1:30 PM CDT Office Visit [facility] Cardiology at [address] [place] [address] Julio Lambert MD Cardiomyopathy, ischemic (Primary Dx); Coronary artery disease involving [place] coronary artery of [place] heart without angina pectoris; PVC's (premature ventricular contractions); Hyperlipidemia LDL goal <70; Tobacco abuse 01/26/2025 11:15 AM CDT Ancillary Procedure [facility] Cardiology at [address] [place] [address] Coronary artery disease involving [place] coronary artery of [place] heart without angina pectoris; Cardiomyopathy, ischemic 01/22/2025 10:57 AM CDT - 01/22/2025 11:59 PM CDT Hospital Encounter [facility] [address] [place] [address] 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) Discharge Disposition: Discharge to home or self care 01/15/2025 10:15 AM CDT Lab [facility] - Lab Collection [address] [facility] [address] [place] [address] 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 Medications aspirin 81 mg enteric coated tablet Take 1 tablet (81 mg total) by mouth 2 (two) times a day Active atorvastatin (LIPITOR) 80 mg tablet Take 1 tablet (80 mg total) by mouth nightly 90 tablet 3 06/15/2024 Active carvediloL (COREG) 6.25 mg tablet Take 1 tablet (6.25 mg total) by mouth 2 (two) times a day with meals 180 tablet 3 06/15/2024 5 Active nitroglycerin (NITROSTAT) 0.[address] 1 tablet (0.4 mg total) under the tongue every 5 (five) minutes as needed for chest pain May repeat dose q 5 min, up to 3 doses total 25 tablet 3 06/15/2024 5 Active sacubitriL-vals milagro (Entresto) 24-26 mg tablet Take 1 tablet by mouth 2 (two) times a day 180 tablet 2 01/30/2025 Active Active Problems Patient Care Coordination No te Formatting of this note is d ifferent from the original. BMT Inpatient Care Coordination Overview Diagnosis AML Floor 8800 Treatment Plan HDAC Reason for Admission C4 HIDAC (6d) Transplant/IEC Planning BMT/IEC Plan HLA typing/IDMs [x] HLA 12/27, URD/sib 10/21 Insurance Approval [] Discharge Planning Anticipated Discharge Date 03/19/24 Patient Education Completed [] Issue to be Resolved Before Discharge Discharge Disposition home Requests Sent to Case Management, Pharmacy PA Team, or Medical Assistants Post-Discharge Follow-Up Living Situation/Distance from [place], [place] <1hr Caregiver Lab/Transfusion Frequency Twice weekly @ [facility] Lab/Plt/Bt1 (@ [facility]): 03/23; 03/27; 03/30; 04/03; 04/06; 04/10; 04/13 Venous Access & Care Local Oncologist Contact Phone: Fax: Post-Discharge Office Visit (H30) [facility] - 04/17/24 Neulasta inj @ [facility] (auth approved)- 03/21 Miscellaneous Notes: Problem Noted [...] with periapical lucency at tooth 32 -consulted surgery aide, tooth extraction today 01/19. Ensured platelet count is >50K for the procedure. 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 Assessment & Plan (12/09/2023 12:04 PM DESIGN PAINTER): -new pt; same day add on for [...] 2 weeks (12/27/2023) with me at the [facility] anterior segment check; sooner with issues -consider BCL placement in the interim if pt returns earlier than scheduled Persons encountering health services in other specified circumstances 11/22/2023 Severe malnutrition 11/10/2023 Rash and nonspecific skin eruption 11/03/2023 Assessment & Plan (11/08/2023 8:31 AM DESIGN PAINTER): Rash extending from neck, b/ upper extremities [...] 11/02/2023 Assessment & Plan (11/08/2023 8:35 AM DESIGN PAINTER): See 'streptococcal bacteremia' - vanc/gil (11/01 -11/03); [...] 10/30/2023 Assessment & Plan (11/08/2023 8:28 AM DESIGN PAINTER): First fever on10/29. Lactate 0.6. RVP negative, [...] 10/19/2023 Assessment & Plan (11/06/2023 4:57 PM DESIGN PAINTER): Presents with fatigue and new pancytopenia. Bone marrow biopsy (10/14) consistent with AML w/ 22.8% blasts. PB [...] 11/15/2022 Assessment & Plan (10/23/2023 1:11 PM DESIGN PAINTER): Mostly atypical (brief, sharp) -serial trops negative. TTE 10/20/23 without WMA -Cardiology consulted. Low suspicion for cardiac ischemia. UPJ obstruction, acquired 01/06/2019 Overview (01/06/2019): Added automatically from request for surgery [id number] PVC's (premature ventricular contractions) 04/21 Impotence of organic origin 09/01/2016 Overview (01/29/2017): Erectile dysfunction, unspecified erectile dysfunction type CAD (coronary artery disease) 03/05/2016 Overview (01/29/2017): Coronary artery disease involving [place] coronary artery of [place] heart without angina pectoris Assessment & Plan (02/03/2024 6:23 PM CDT): status post PCI with JT to mid LAD in 2016. - ASA held for tcp - c/w home coreg and lipitor - Previously on Entresto, held for hypotension during previous admission. Assessment & Plan (10/26/2023 2:04 PM DESIGN PAINTER): S/p JT to LAD in 2016. - Repeat catheterization 11/16 with minimal disease - Holding ASA and plavix given thrombocytopenia - Continue statin - ARNI / BB as elsewhere Hyperlipidemia LDL goal <70 03/05/2016 Overview (01/29/2017): Hyperlipidemia LDL goal <70 Tobacco abuse 03/05/2016 Overview (01/29/2017): History of tobacco abuse Assessment & Plan (10/20/2023 1:27 AM DESIGN PAINTER): Reports 1ppd history for ~20 years, recently decreased to 1/2ppd. - Encouraged abstinence - nicotine patch ordered Chest pain at rest 03/05/2016 Overview (01/29/2017): Chest pain at rest Cardiomyopathy, ischemic 03/05/2016 Overview (01/29/2017): Ischemic cardiomyopathy Assessment & Plan (01/17/2024 9:08 PM CDT): -coronary artery disease status post PCI with JT to mid LAD in 2016 At home on asa 81 mg p.o. q.day ,Coreg 3.125 mg p.o. b.i.d. , atorvastatin 80 mg p.o. q.day Previously on Entresto, held for hypotension during previous admission -hold aspirin in setting of severe thrombocytopenia, resume when platelets above 50 K and no bleeding -continue Lipitor 80 mg p.o. q.day, Coreg 3.125 b.i.d. Continue to hold Entresto Assessment & Plan (11/08/2023 8:35 AM DESIGN PAINTER): TTE 12/2022 previously with LVEF 44% and mod LV dysfunction in setting of prior OR and CAD. Repeat TTE 10/20/23 w/ EF 53% -no clinical findings c/f heart failure - Cards previously consulted. Appreciate recs. - Holding Entresto ISO bradycardia, normotension, GI volume losses - Resumed coreg on 11/07 Fatigue due to treatment 03/05/2016 Overview (01/29/2017): Fatigue due to treatment Resolved Problems Problem Noted Date Diagnosed Date [...] On ClinSeq for AML mutation clearance trial ([id number]). S/p 2 cycles HiDAC. 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 on Clinseq trial; D1 12/29/23 - OI ppx: ACV, fluconazole -Transfuse per BMT protocol Immunizations Immunization Administration Dates Next Due Influenza, Trivalent, Cell C ulture-based MDCK, Preservative Free, Antibiotic Free, Intramuscular 08/14/2024 Tdap 03/30/2020 Social History Tobacco Use Types Packs/Day Years Used Date Smoking Tobacco: Some Days Cigarettes 0.1 20 Started: 11/19/2002; Last attempted to quit: 11/19/2022 Smokeless Tobacco: Never Tobacco Cessation:Ready to Q uit: Not Asked; Counseling Given: Not Answered Comments:Hasn't smoked in the last month 11/22/2023 Smokes some marijuana still no smoking 01/24/2024 03/02/2024 06/19/2024 08/14/2024 11/13/2024 Alcohol Use Standard Drinks/Week Comments Not Currently 2 (1 standard drink = 0.6 oz pur e alcohol) [facility] - [employer] Answer Date Recorded In the past 12 months has [employer], gas, oil, or water company threatened to shut off services in your home? No 03/15/2024 Social Connection and Isolat ion Panel [NHANES] Answer Date Recorded In a typical week, how many times do you talk on the phone with family, friends, or neighbors? More than three times a week 03/15/2024 How often do you get togethe r with friends or relatives? More than three times a week 03/15/2024 How often do you attend chur ch or moravian services? Never 03/15/2024 Do you belong to any clubs o r organizations such as buddhist groups, unions, fraternal or athletic groups, or school groups? No 03/15/2024 How often do you attend meet ings of the clubs or organizations you belong to? Never 03/15/2024 Are you , , di vorced, , never , or living with a partner? 03/15/2024 AUDIT-C Answer Date Recorded Frequency of Alcohol Consumption Not on file 10/21/2023 Q2: How many drinks containi ng alcohol do you have on a typical day when you are drinking? Patient does not drink 3 Frequency of Binge Drinking Not on file 09/25 Overall Financial Resource Strain (CARDIA) Answe r Date Recorded How hard is it for you to pa y for the very basics like food, housing, medical care, and heating? Somewhat hard 03/15/2024 PHQ-2 Answer Date Recorded PHQ-2 Total Score 0 03/15/2024 Hunger Vital Sign Answer Date Recorded Within the past 12 months, y ou worried that your food would run out before you got the money to buy more. Never true 03/15/20 24 Within the past 12 months, t he food you bought just didn't last and you didn't have money to get more. Never true 03/15/2024 PRAPARE - Transportation Answer Date Re corded In the past 12 months, has l ack of transportation kept you from medical appointments or from getting medications? No 02/23 In the past 12 months, has l ack of transportation kept you from meetings, work, or from getting things needed for daily living? No 03/15/2024 Housing Stability Vital Sign Answer Valente e Recorded In the last 12 months, was t here a time when you were not able to pay the mortgage or rent on time? No 02/08/2024 In the last 12 months, how many places have you lived? 1 02/08/2024 In the last 12 months, was t here a time when you did not have a steady place to sleep or slept in a group home (including now)? No 02/08/2024 Housing Stability Vital Sign Answer Valente e Recorded In the last 12 months, was t here a time when you were not able to pay the mortgage or rent on time? No 03/15/2024 In the past 12 months, how m any times have you moved where you were living? 0 03/15/2024 At any time in the past 12 m [facility], were you homeless or living in a group home (including now)? No 03/15/2024 Personal Safety Answer Date Recorded Have you ever been in or are you currently in a harmful physical or emotional relationship or is someone making you feel afraid or unsafe? Denies 03/14/2024 Sex and Gender Information Value Date Recorded Sex Assigned at Not on file Legal Sex Male 4:05 AM DESIGN PAINTER Gender Identity Male 12/03/2022 6:35 AM DESIGN PAINTER Sexual Orientation Straight 12/03/2022 6: 35 AM DESIGN PAINTER Last Filed Vital Signs Vital Sign Reading Time Taken Comments Blood Pressure 116/86 01/30/2025 1:19 PM CDT Pulse 92 01/30/2025 1:19 PM CDT Temperature 36.6 C (97.9 F) 01/15/2025 10:50 AM CDT Respiratory Rate 16 01/15/2025 10:50 AM CDT Oxygen Saturation 97% 01/30/2025 1:19 PM CDT Inhaled Oxygen Concentration - - Weight 95.7 kg (211 lb) 01/30/2025 1:19 PM CDT Height 177.8 cm (5' 10 ) 01/30/2025 1:19 PM CDT Body Mass Index 30.28 01/30/2025 1:19 PM CDT Plan of Treatment Not on file Medical Devices Implanted Type Area Woodyard Operator Device Identifier Shelf Expiration Date Model / Serial / Lot [employer] Demian 180-225 Contour 6fr 30cm Large Inner Lumen Low Profile Bladder Noel Taper Latex Free - [id number] Implanted:Qty: 1 on 02/24/2019 by Dinesh Rodriguez MD at [facility] Stent Left: Ureter [employer] Demian 08/09/2021 180-225 / / [id number] [employer] Angio-Seal Vip 6fr Closere Device [id number] - [id number] Implanted:Qty: 1 on 11/18/2022 by Niko Victoria MD at [facility] [employer] 07/24/2023 [id number] / / [id number] Procedures Procedure Name Priority Date/Time Associated Diagnosis Comments POCT LIPID PANEL Routine 01/30/2025 1:15 PM CDT Coronary artery disease involving [place] coronary artery of [place] heart without angina pectoris Hyperlipidemia LDL goal <70 TRANSTHORACIC ECHO (TTE) COMPLETE W DOPPLER/CF WO CONTRAST Routine 01/26/2025 11:11 AM CDT Coronary artery disease involving [place] coronary artery of [place] heart without angina pectoris Cardiomyopathy, ischemic CT ABDOMEN PELVIS W CONTRAST Schedule Routine, Read Routine (OP Routine) 01/22/2025 11:25 AM CDT 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) EGFR Routine 01/15/2025 10:42 AM CDT 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) DIFFERENTIAL AUTO Routine 01/15/2025 10: 42 AM CDT 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) MISCELLANEOUS MOLECULAR SEND-OUT REQUEST Routine 01/15/2025 10:42 AM CDT 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) CBC WITH AUTO DIFFERENTIAL Routine 01/15/2025 10:42 AM CDT 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) COMPREHENSIVE METABOLIC PANEL Routine 01/15/2025 10:42 AM CDT 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) LACTATE DEHYDROGENASE Routine 01/15/2025 10:42 AM CDT 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) URIC ACID Routine 01/15/2025 10:42 AM CDT 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) HEPATITIS PANEL, ACUTE Routine 10/19/2023 11:12 PM DESIGN PAINTER from Last 3 Months or Most Recently Relevant to Health Maintenance Results * POCT lipid panel (01/30/2025 1:15 PM CDT) Cholesterol, POC 109 mg/dL HDL, POC 30 mg/dL Triglycerides, POC 65 mg/dL LDL Cholesterol POC 65 mg/dL Chol/HDL Ratio, POC 3.6 Non-HDL Cholesterol, POC 78 mg/dL Cholesterol Total, POC 109 mg/dL Capillary blood 01/30/2025 1 :15 PM CDT us Julio Lambert MD POINT OF CARE TEST ORDERA BLES Final Result * TRANSTHORACIC ECHO (TTE) COMPLETE W DOPPLER/CF WO CONTRAST (01/26/2025 11:11 AM CDT) LV EF 40-45 % CONS SCIMAGE Anatomical Region Laterality Modality Ultrasound 01/26/2025 10:5 3 AM CDT Narrative 01/26/2025 12:34 PM CDT [facility] [address] , [address], [place] [address] [phone] P:[phone] Echocardiographic Report Patient Name: JERRY PALENCIA P : 1975 Study Date: 01/26/2025 10:53:17 AM Gender: M Tech: Location: [facility] Ref Provider: JULIO LAMBERT Height(Cm): 178 BSA: 2.17 Weight(Kg): 95.3 Heart Rate: 57 BP: 127 / 86 Quality: Good Order Provider: JULIO LAMBERT PROCEDURES: Echocardiographic Report: Transthoracic echocardiogram with complete 2D, M-Mode, and color Doppler examination. With Strain Analysis. INDICATIONS: Coronary Artery Disease and I25.5 Ischemic cardiomyopathy. MEASUREMENTS: 2D/MM Value Range Doppler Value Range EF Mod BP 47 % [ 52 - 72 ] AV Mean PG 3 mmHg EF Teich MM 50 % [ 52 - 72 ] AV Peak Tera 1.22 m/s [ 1.00 - 1.70 ] Estimated EF 40-45 % AV Peak PG 6 mmHg LVIDd 2D 6.43 cm [ 4.20 - 5.80 ] AV VTI 26.14 cm LVIDd MM 6.42 cm [ 4.20 - 5.80 ] LVOT Peak Tera 0.93 m/s [ 0.70 - 1.10 ] LVIDs 2D 4.75 cm [ 2.50 - 4.00 ] LVOT VTI 19.47 cm LVIDs MM 4.74 cm [ 2.50 - 4.00 ] MV E Peak Tera 0.64 m/s [ 0.60 - 1.30 ] LVPWd 2D 0.82 cm [ 0.60 - 1.00 ] MV A Peak Tera 0.68 m/s [ 1.00 - 1.20 ] LVPWd MM 0.75 cm [ 0.60 - 1.00 ] MV Decel Time 217 msec [ 104 - 258 ] IVSd 2D 0.80 cm [ 0.60 - 1.00 ] PV Peak Tera 0.85 m/s [ 0.40 - 0.80 ] IVSd MM 1.04 cm [ 0.60 - 1.00 ] TR Peak Tera 2.24 m/s [ 1.00 - 2.80 ] LA Dimension MM 3.83 cm [ 3.00 - 4.00 ] TR Peak PG 20 mmHg AoR Diam MM 3.77 cm [ 3.10 - 3.70 ] RVSP 28.00 mmHg [ 10.00 - 36.00 ] LA Volume Index 26 cc/m2 [ 16 - 34 ] Lateral E` 0.11 m/s [ 0.10 - 0.15 ] ACS MM 2.39 cm [ 1.50 - 2.60 ] E/E` 6 2D/MM Value Range Doppler Value Range - FINDINGS: Interpretation Site: Exam was interpreted at [facility]. Left Ventricle: Mild enlargement of left ventricle cavity. Mild to moderate global left ventricular systolic dysfunction. Impaired diastolic relaxation Grade I. Ejection fraction is measured at 47 %. Ejection Fraction is visually estimated to be 40-45 %. Global Longitudinal Strain is -15 %. GLS is abnormal. Right Ventricle: Normal right ventricular size. Normal right ventricular systolic function. Left Atrium: There is mild enlargement of left atrium. Right Atrium: The right atrium is normal in size. Atrial Septum: Normal atrial septum. Mitral Valve: Normal appearance of the mitral valve. Mild mitral valve regurgitation. There is no hemodynamically significant mitral stenosis by Doppler. Aortic Valve: No evidence of hemodynamically significant aortic stenosis by Doppler. Aortic cusps appear mildly sclerotic. Trileaflet aortic valve. Trace aortic valve regurgitation. Tricuspid Valve: Normal appearance of the tricuspid valve. Normal right ventricular systolic pressure. Estimated peak RVSP is 28 mmHg. Mild tricuspid regurgitation. Pulmonic Valve: Normal appearance of the pulmonic valve. No pulmonic stenosis. Trivial regurgitation in the pulmonic valve. Pericardium: Normal pericardium with no significant pericardial effusion. Aorta: Aortic root is mildly dilated. IVC: Normal size and normal respiratory collapse consistent with normal right atrial pressure (<5 mmHg). CONCLUSIONS: Mild enlargement of left ventricle cavity. Mild to moderate global left ventricular systolic dysfunction. Impaired diastolic relaxation Grade I. Ejection fraction is measured at 47 %. Ejection Fraction is visually estimated to be 40-45 %. Global Longitudinal Strain is -15 %. GLS is abnormal. There is mild enlargement of left atrium. Mild mitral valve regurgitation. Mild tricuspid regurgitation. Normal sinus rhythm. Electronically Signed By: Julio Lambert MD 01/26/2025 12:33:25 PM CDT Procedure Note Julio Lambert MD - 01/26/2025 [facility] [address], [address], [place] [address] P:[phone] P:[phone] Echocardiographic Report Patient Name: JERRY PALENCIA P : 1975 Study Date: 01/26/2025 10:53:17 AM Gender: M Tech: Location: [facility] Ref Provider: JULIO ALMBERT Height(Cm): 178 BSA: 2.17 Weight(Kg): 95.3 Heart Rate: 57 BP: 127 / 86 Quality: Good Order Provider: JULIO LAMBERT PROCEDURES: Echocardiographic Report: Transthoracic echocardiogram with complete 2D, M-Mode, and color Dopplerexamination. With Strain Analysis. INDICATIONS: Coronary Artery Disease and I25.5 Ischemic cardiomyopathy. MEASUREMENTS: 2D/MM Value Range Doppler ValueRange EF Mod BP 47 % [ 52 - 72 ] AV Mean PG 3mmHg EF Teich MM 50 % [ 52 - 72 ] AV Peak Tera 1.22m/s [ 1.00 - 1.70 ] Estimated EF 40-45 % AV Peak PG 6mmHg LVIDd 2D 6.43 cm [ 4.20 - 5.80 ] AV VTI 26.14cm LVIDd MM 6.42 cm [ 4.20 - 5.80 ] LVOT Peak Tera 0.93m/s [ 0.70 - 1.10 ] LVIDs 2D 4.75 cm [ 2.50 - 4.00 ] LVOT VTI 19.47cm LVIDs MM 4.74 cm [ 2.50 - 4.00 ] MV E Peak Tera 0.64m/s [ 0.60 - 1.30 ] LVPWd 2D 0.82 cm [ 0.60 - 1.00 ] MV A Peak Tera 0.68m/s [ 1.00 - 1.20 ] LVPWd MM 0.75 cm [ 0.60 - 1.00 ] MV Decel Time 217msec [ 104 - 258 ] IVSd 2D 0.80 cm [ 0.60 - 1.00 ] PV Peak Tera 0.85m/s [ 0.40 - 0.80 ] IVSd MM 1.04 cm [ 0.60 - 1.00 ] TR Peak Tera 2.24m/s [ 1.00 - 2.80 ] LA Dimension MM 3.83 cm [ 3.00 - 4.00 ] TR Peak PG 20mmHg AoR Diam MM 3.77 cm [ 3.10 - 3.70 ] RVSP 28.00mmHg [ 10.00 - 36.00 ] LA Volume Index 26 cc/m2 [ 16 - 34 ] Lateral E` 0.11m/s [ 0.10 - 0.15 ] ACS MM 2.39 cm [ 1.50 - 2.60 ] E/E` 6 2D/MM Value Range Doppler ValueRange - FINDINGS: Interpretation Site: Exam was interpreted at [facility]. Left Ventricle: Mild enlargement of left ventricle cavity. Mild to moderate global leftventricular systolic dysfunction. Impaired diastolic relaxation Grade I. Ejectionfraction is measured at 47 %. Ejection Fraction is visually estimated to be 40-45 %.Global Longitudinal Strain is -15 %. GLS is abnormal. Right Ventricle: Normal right ventricular size. Normal right ventricular systolicfunction. Left Atrium: There is mild enlargement of left atrium. Right Atrium: The right atrium is normal in size. Atrial Septum: Normal atrial septum. Mitral Valve: Normal appearance of the mitral valve. Mild mitral valve regurgitation.There is no hemodynamically significant mitral stenosis by Doppler. Aortic Valve: No evidence of hemodynamically significant aortic stenosis by Doppler.Aortic cusps appear mildly sclerotic. Trileaflet aortic valve. Trace aortic valveregurgitation. Tricuspid Valve: Normal appearance of the tricuspid valve. Normal right ventricularsystolic pressure. Estimated peak RVSP is 28 mmHg. Mild tricuspid regurgitation. Pulmonic Valve: Normal appearance of the pulmonic valve. No pulmonic stenosis. Trivialregurgitation in the pulmonic valve. Pericardium: Normal pericardium with no significant pericardial effusion. Aorta: Aortic root is mildly dilated. IVC: Normal size and normal respiratory collapse consistent with normal rightatrial pressure (<5 mmHg). CONCLUSIONS: Mild enlargement of left ventricle cavity. Mild to moderate global leftventricular systolic dysfunction. Impaired diastolic relaxation Grade I. Ejectionfraction is measured at 47 %. Ejection Fraction is visually estimated to be 40-45 %.Global Longitudinal Strain is -15 %. GLS is abnormal. There is mild enlargement of left atrium. Mild mitral valve regurgitation. Mild tricuspid regurgitation. Normal sinus rhythm. Electronically Signed By: Julio Lambert MD 01/26/2025 12:33:25 PM CDT us Julio Lambert MD CV ECHO PROCEDURES Final Result * CT Abdomen Pelvis W Contrast (01/22/2025 11:25 AM CDT) Anatomical Region Laterality Modality Body N/A Computed Tomogra phy 01/22/2025 2:00 PM CDT Impressions 01/22/2025 2:00 PM CDT 1. Thickening of the distal esophagus may be related to esophagitis. Consider gastroenterology follow-up. 2. No other acute findings. Electronically signed by: Jeremie Charles M.D. Narrative 01/22/2025 2:00 PM CDT EXAMINATION: CT ABDOMEN PELVIS W CONTRAST HISTORY: Abdominal/flank pain, stone suspected FINDINGS: Lung bases are unremarkable. No pleural effusion. Imaged base of heart is unremarkable. Thickening of the distal esophagus noted. Esophagus and stomach are nondistended. Spleen is unremarkable. Gallbladder is nondistended. The pancreas is normal. Adrenal glands are normal. Kidneys enhance symmetrically. 2 mm nonobstructing left lower pole renal stone. No bowel obstruction. No lymphadenopathy. Atherosclerosis of the thoracoabdominal aorta and its branches. Appendix is normal. No acute osseous abnormality. Procedure Note Jeremie Charles MD - 01/22/2025 EXAMINATION: CT ABDOMEN PELVIS W CONTRAST HISTORY: Abdominal/flank pain, stone suspected FINDINGS: Lung bases are unremarkable. No pleural effusion. Imaged base of heart is unremarkable. Thickening of the distal esophagus noted. Esophagus and stomach are nondistended. Spleen is unremarkable. Gallbladder is nondistended. The pancreas is normal. Adrenal glands are normal. Kidneys enhance symmetrically. 2 mm nonobstructing left lower pole renal stone. No bowel obstruction. No lymphadenopathy. Atherosclerosis of the thoracoabdominal aorta and its branches. Appendix is normal. No acute osseous abnormality. IMPRESSION: 1. Thickening of the distal esophagus may be related to esophagitis. Consider gastroenterology follow-up. 2. No other acute findings. Electronically signed by: Jeremie Charles M.D. Mala Camacho SENIOR UI UX DEVELOPER IMG CT PROCEDURES Fin al Result * NPM1 PCR send out to Lab PM -Miscellaneous Molecular Send-out Request (01/15/2025 10:42 AM CDT) Result 1 Test Name: NPM1 MRD NGS Assay (Lab PM) Specimen Type: PB Result: See attached scanned report for results. Test name NPM1 MRD NGS Assay (Lab [facility] Blood 01/15/2025 10:4 2 AM CDT 01/15/2025 1:28 PM CDT Narrative PETE [facility] - 01/23/2025 9:12 AM CDT Test Requested:->NPM1 PCR send out to Lab PMM Mala Camacho NP LAB GENETIC TESTING F inal Result Performing Organization Address City/[facility]/ZIP Co de Phone Number [facility] Department [place] [address] * eGFR (01/15/2025 10:42 AM CDT) eGFR >90 >=60 mL/min/1. 73 m2 Comment: Interpretive Data Reference Interval Normal >/= 90 mL/min/1.73m2 Mildly decreased* 60 - 89 mL/min/1.73m2 Mildly to moderately decreased 45 - 59 mL/min/1.73m2 Moderately to severely decreased 30 - 44 mL/min/1.73m2 Severely decreased 15 - 29 mL/min/1.73m2 Kidney Failure < 15 mL/min/1.73m2 *Relative to young adult level Estimated glomerular filtration rate is determined by the 2020 CKD-EPI equation recommended by the National Kidney Foundation (A Unifying Approach to GFR Estimation: Recommendations of the NKF-ASK Task Force on Reassessing the Inclusion of Race in Diagnosing Kidney Disease, JASN 2020). The CKD-EPI equation should not be used for patients with unstable renal function and has not been validated in children and those over 70. Current interpretive data was last reviewed 2021. Blood 01/15/2025 10:4 2 AM CDT 01/15/2025 10:51 AM CDT Mala Camacho SENIOR UI UX DEVELOPER LAB BLOOD ORDERABLES Final Result Performing Organization Address City/[facility]/ZIP Co de Phone Number PETE RAMESH [facility] Department [place] [address] * Differential, auto (01/15/2025 10:42 AM CDT) Neutrophil abs 4.4 1.5 - 6.5 K/cumm Comment:Testing performed by : [facility], [address] [place] [phone] Lymphocyte abs 1.6 0.8 - 3.3 K/cumm [facility] Comment:Testing performed by : [facility], [address] [place] [phone] Monocyte abs 0.5 0.2 - 0.8 K/cumm [facility] Comment:Testing performed by : [facility], [address] [place] [address] Eosinophil abs 0.2 0.0 - 0.5 K/cumm [facility] Comment:Testing performed by : [facility], [address] [place], [place] [id number] Basophil abs 0.0 0.0 - 0.1 K/cumm [facility] Comment:Testing performed by : [facility], [address] [place], [place] [id number] Neutrophil pct 65.8 % CERNER [facility] Comment: Interpretive Data Percent cell count reference ranges are not reported, since discordance with absolute values may lead to misinterpretation of CBC data. Current Interpretive Data was last revised on 2018. Testing performed by: [facility], [address] [place] [phone] Lymphocyte pct 23.9 % C[facility]ER [facility] Comment: Interpretive Data Percent cell count reference ranges are not reported, since discordance with absolute values may lead to misinterpretation of CBC data. Current Interpretive Data was last revised on 2018. Testing performed by: [facility], [address] [place] [phone] Monocyte pct 6.9 % CERNER [facility] Comment: Interpretive Data Percent cell count reference ranges are not reported, since discordance with absolute values may lead to misinterpretation of CBC data. Current Interpretive Data was last revised on 2018. Testing performed by: [facility], [address] [place] [phone] Eosinophil pct 2.8 % [facility] Comment: Interpretive Data Percent cell count reference ranges are not reported, since discord [id number]|2025-03-07 10:26:00|2025-03-07 10:26:00|XMS_ITS|BKG DAEMON|External Medical Summaries|[id number]|" Clinical Summary Created on: March 07, 2025 Jerry Palencia : 1975 Sex: Male Author Organization [facility] Address [address] [place] [address] Care Team Providers Care Special Education Educational Assistant Name Role Phone Niko Victoria MD Unavailable [phone] Marino Sethi Primary Care Provider [phone] Jai Hermosillo MD Unavailable [phone] Justen Browne MD Unavailable [phone] Allergies Active Allergy Reactions Criticality Noted Date Comments Meropenem Rash Medium 11/10/2023 Rash suspected 2/2 Meropenem. Medications aspirin 81 mg enteric coated tablet Take 1 tablet (81 mg total) by mouth 2 (two) times a day Active atorvastatin (LIPITOR) 80 mg tablet Take 1 tablet (80 mg total) by mouth nightly 90 tablet 3 06/15/2024 Active carvediloL (COREG) 6.25 mg tablet Take 1 tablet (6.25 mg total) by mouth 2 (two) times a day with meals 180 tablet 3 06/15/2024 5 Active nitroglycerin (NITROSTAT) 0.[address] 1 tablet (0.4 mg total) under the tongue every 5 (five) minutes as needed for chest pain May repeat dose q 5 min, up to 3 doses total 25 tablet 3 06/15/2024 5 Active sacubitriL-vals milagro (Entresto) 24-26 mg tablet Take 1 tablet by mouth 2 (two) times a day 180 tablet 2 01/30/2025 Active Active Problems Patient Care Coordination No te [...] Medical Assistants Post-Discharge Follow-Up Living Situation/Distance from [place], [place] <1hr Caregiver Lab/Transfusion Frequency Twice weekly @ [facility] Lab/Plt/Bt1 (@ [facility]): 03/23; 03/27; 03/30; 04/03; 04/06; 04/10; 04/13 Venous Access & Care Local Oncologist Contact Phone: Fax: Post-Discharge Office Visit (H30) [facility] - 04/17/24 Neulasta inj @ [facility] (auth approved)- 03/21 Miscellaneous Notes: Problem Noted [...] with periapical lucency at tooth 32 -consulted surgery aide, tooth extraction today 01/19. Ensured platelet count is >50K for the procedure. 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 Assessment & Plan (12/09/2023 12:04 PM DESIGN PAINTER): -new pt; same day add on for [...] 2 weeks (12/27/2023) with me at the [facility] anterior segment check; sooner with issues -consider BCL placement in the interim if pt returns earlier than scheduled Persons encountering health services in other specified circumstances 11/22/2023 Severe malnutrition 11/10/2023 Rash and nonspecific skin eruption 11/03/2023 Assessment & Plan (11/08/2023 8:31 AM DESIGN PAINTER): Rash extending from neck, b/ upper extremities [...] 11/02/2023 Assessment & Plan (11/08/2023 8:35 AM DESIGN PAINTER): See 'streptococcal bacteremia' - vanc/gil (11/01 -11/03); [...] 10/30/2023 Assessment & Plan (11/08/2023 8:28 AM DESIGN PAINTER): First fever on10/29. Lactate 0.6. RVP negative, [...] 10/19/2023 Assessment & Plan (11/06/2023 4:57 PM DESIGN PAINTER): Presents with fatigue and new pancytopenia. Bone marrow biopsy (10/14) consistent with AML w/ 22.8% blasts. PB [...] 11/15/2022 Assessment & Plan (10/23/2023 1:11 PM DESIGN PAINTER): Mostly atypical (brief, sharp) -serial trops negative. TTE 10/20/23 without WMA -Cardiology consulted. Low suspicion for cardiac ischemia. UPJ obstruction, acquired 01/06/2019 Overview (01/06/2019): Added automatically from request for surgery [id number] PVC's (premature ventricular contractions) 04/21 Impotence of organic origin 09/01/2016 Overview (01/29/2017): Erectile dysfunction, unspecified erectile dysfunction type CAD (coronary artery disease) 03/05/2016 Overview (01/29/2017): Coronary artery disease involving [place] coronary artery of [place] heart without angina pectoris Assessment & Plan (02/03/2024 6:23 PM CDT): status post PCI with JT to mid LAD in 2016. - ASA held for tcp - c/w home coreg and lipitor - Previously on Entresto, held for hypotension during previous admission. Assessment & Plan (10/26/2023 2:04 PM DESIGN PAINTER): S/p JT to LAD in 2015. - Repeat catheterization 11/16 with minimal disease - Holding ASA and plavix given thrombocytopenia - Continue statin - ARNI / BB as elsewhere Hyperlipidemia LDL goal <70 03/05/2016 Overview (01/29/2017): Hyperlipidemia LDL goal <70 Tobacco abuse 03/05/2016 Overview (01/29/2017): History of tobacco abuse Assessment & Plan (10/20/2023 1:27 AM DESIGN PAINTER): Reports 1ppd history for ~20 years, recently decreased to 1/2ppd. - Encouraged abstinence - nicotine patch ordered Chest pain at rest 03/05/2016 Overview (01/29/2017): Chest pain at rest Cardiomyopathy, ischemic 03/05/2016 Overview (01/29/2017): Ischemic cardiomyopathy Assessment & Plan (01/17/2024 9:08 PM CDT): -coronary artery disease status post PCI with JT to mid LAD in 2016 At home on asa 81 mg p.o. q.day ,Coreg 3.125 mg p.o. b.i.d. , atorvastatin 80 mg p.o. q.day Previously on Entresto, held for hypotension during previous admission -hold aspirin in setting of severe thrombocytopenia, resume when platelets above 50 K and no bleeding -continue Lipitor 80 mg p.o. q.day, Coreg 3.125 b.i.d. Continue to hold Entresto Assessment & Plan (11/08/2023 8:35 AM DESIGN PAINTER): TTE 12/2022 previously with LVEF 44% and mod LV dysfunction in setting of prior OR and CAD. Repeat TTE 10/20/23 w/ EF 53% -no clinical findings c/f heart failure - Cards previously consulted. Appreciate recs. - Holding Entresto ISO bradycardia, normotension, GI volume losses - Resumed coreg on 11/07 Fatigue due to treatment 03/05/2016 Overview (01/29/2017): Fatigue due to treatment Resolved Problems Problem Noted Date Diagnosed Date [...] On ClinSeq for AML mutation clearance trial ([id number]). S/p 2 cycles HiDAC. 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; D1 12/29/23 - OI ppx: ACV, fluconazole -Transfuse per BMT protocol Encounters Date Type Department Care Team Description 01/30/2025 1:30 PM CDT Office Visit [facility] Cardiology at [address] [place] [phone] Julio Lambert MD Cardiomyopathy, ischemic (Primary Dx); Coronary artery disease involving [place] coronary artery of [place] heart without angina pectoris; PVC's (premature ventricular contractions); Hyperlipidemia LDL goal <70; Tobacco abuse 01/30/2025 Telephone [facility] [address] [place] [phone] Leslye Dimas RN 01/26/2025 11:15 AM CDT Ancillary Procedure [facility] Cardiology at [address] [place] [phone] Coronary artery disease involving [place] coronary artery of [place] heart without angina pectoris; Cardiomyopathy, ischemic 01/22/2025 10:57 AM CDT - 01/22/2025 11:59 PM CDT Hospital Encounter [facility] [address] [place] [address] 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) Discharge Disposition: Discharge to home or self care 01/15/2025 11:00 AM CDT Office Visit [facility] [address] [place] [address] [address] [place] [address] Mala Camacho NP 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) 01/15/2025 10:15 AM CDT Lab [facility] - Lab Collection [address] [facility] [address] [place] [address] 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) 01/15/2025 10:00 AM CDT Lab [facility] [address] [facility] [address] [place] [address] 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) from Last 3 Months Immunizations Immunization Administration Dates Next Due Influenza, Trivalent, Cell C ulture-based MDCK, Preservative Free, Antibiotic Free, Intramuscular 08/14/2024 Tdap 03/30/2020 Surgical History Surgery Date Site/Laterality Comments CARDIAC STENT PLACEMENT 01/24/2016 - 02/22/2016 LAD CYSTOSCOPY CENTRAL LINE PLACEMENT > 5 YEARS 10/21/2023 N/A Medical History Medical History Date Comments Hyperlipidemia Cardiomyopathy (HCC) Myocardial infarct, old CAD (coronary artery disease) CA D status post acute OR with a 99% mid LAD status; Comments: MAF 03/05/2016 - Tobacco abuse Heart disease 02/2016 Family History Medical History Relation Name Comments No Known Problems Brother No Known Problems Father No Known Problems Mother Hypertension Other Family history of Hypertension; No Known Problems Sister Relation Name Status Comments Brother Alive Father Alive Mother Alive Other Sister Alive Social History Tobacco Use Types Packs/Day Years Used Date Smoking Tobacco: Some Days Cigarettes 0.1 20 Started: 11/19/2002; Last attempted to quit: 11/19/2022 Smokeless Tobacco: Never Tobacco Cessation:Ready to Q uit: Not Asked; Counseling Given: Not Answered Comments:Hasn't smoked in the last month 11/22/2023 Smokes some marijuana still no smoking 01/24/2024 03/02/2024 06/19/2024 08/14/2024 11/13/2024 Alcohol Use Standard Drinks/Week Comments Not Currently 2 (1 standard drink = 0.6 oz pur e alcohol) [facility] Utilities Answer Date Recorded In the past 12 months has [employer], gas, oil, or water [employer] threatened to shut off services in your home? No 03/15/2024 Social Connection and Isolat ion Panel [NHANES] Answer Date Recorded In a typical week, how many times do you talk on the phone with family, friends, or neighbors? More than three times a week 03/15/2024 How often do you get togethe r with friends or relatives? More than three times a week 03/15/2024 How often do you attend chur ch or moravian services? Never 03/15/2024 Do you belong to any clubs o r organizations such as buddhist groups, unions, fraternal or athletic groups, or school groups? No 03/15/2024 How often do you attend meet ings of the clubs or organizations you belong to? Never 03/15/2024 Are you , , di vorced, , never , or living with a partner? 03/15/2024 AUDIT-C Answer Date Recorded Frequency of Alcohol [...] like food, housing, medical care, and heating? Somewhat hard 03/15/2024 PHQ-2 Answer Date Recorded PHQ-2 Total Score 0 03/15/2024 Hunger Vital Sign Answer Date Recorded Within the past 12 months, y ou worried that your food would run out before you got the money to buy more. Never true 03/15/20 24 Within the past 12 months, t he food you bought just didn't last and you didn't have money to get more. Never true 03/15/2024 PRAPARE - Transportation Answer Date Re corded In the past 12 months, has l ack of transportation kept you from medical appointments or from getting medications? No 02/23 In the past 12 months, has l ack of transportation kept you from meetings, work, or from getting things needed for daily living? No 03/15/2024 Housing Stability Vital Sign Answer Valente e Recorded In the last 12 months, was t here a time when you were not able to pay the mortgage or rent on time? No 02/08/2024 In the last 12 months, how many places have you lived? 1 02/08/2024 In the last 12 months, was t here a time when you did not have a steady place to sleep or slept in a group home (including now)? No 02/08/2024 Housing Stability Vital Sign Answer Valente e Recorded In the last 12 months, was t here a time when you were not able to pay the mortgage or rent on time? No 03/15/2024 In the past 12 months, how m any times have you moved where you were living? 0 03/15/2024 At any time in the past 12 m [facility], were you homeless or living in a group home (including now)? No 03/15/2024 Personal Safety Answer Date Recorded Have you ever been in or are you currently in a harmful physical or emotional relationship or is someone making you feel afraid or unsafe? Denies 03/14/2024 Sex and Gender Information Value Date Recorded Sex Assigned at Not on file Legal Sex Male 4:05 AM DESIGN PAINTER Gender Identity Male 12/03/2022 6:35 AM DESIGN PAINTER Sexual Orientation Straight 12/03/2022 6: 35 AM DESIGN PAINTER Obstetrics History Last Filed Vital Signs Vital Sign Reading Time Taken Comments Blood Pressure 116/86 01/30/2025 1:19 PM CDT Pulse 92 01/30/2025 1:19 PM CDT Temperature 36.6 C (97.9 F) 01/15/2025 10:50 AM CDT Respiratory Rate 16 01/15/2025 10:50 AM CDT Oxygen Saturation 97% 01/30/2025 1:19 PM CDT Inhaled Oxygen Concentration - - Weight 95.7 kg (211 lb) 01/30/2025 1:19 PM CDT Height 177.8 cm (5' 10 ) 01/30/2025 1:19 PM CDT Body Mass Index 30.28 01/30/2025 1:19 PM CDT Plan of Treatment Health Maintenance Due Date Last Done Comments Colon Cancer Screening-Colonoscopy 1975 Regular Well Visit/Exam 18-64 1994 Pneumococcal vaccine <65 (1 of 2 - PCV) 1995 Zoster Vaccine (1 of 2) 1995 Covid-19 Vaccine (3 - Pfizer risk series) 08/09/2021 07/12/2021, 06/20/2021 Depression Screening 02/09/2025 02/10/2024, 01/07/2024, 12/20/2023, Additional history exists DTaP/Tdap/Td Vaccine (2 - Td or Tdap) 03/30/2030 03/30/2020 Hepatitis B Screening Completed 10/19/2023 Hepatitis C Screening Completed 10/19/2023 , 10/19/2023, 10/19/2023 Influenza Vaccine Completed 08/14/2024 Medical Devices Implanted Type Area Woodyard Operator Device Identifier Shelf Expiration Date Model / Serial / Lot [employer] Demian 180-225 Contour 6fr 30cm Large Inner Lumen Low Profile Bladder Noel Taper Latex Free - [id number] Implanted:Qty: 1 on 02/24/2019 by Dinehs Rodriguez MD at [facility] Stent Left: Ureter [employer] Demian 08/09/2021 180-225 / / [id number] TerKeisense Angio-Seal Vip 6fr Closere Device [id number] - [id number] Implanted:Qty: 1 on 11/18/2022 by Niko Victoria MD at [facility] [employer] 07/24/2023 [id number] / / [id number] Procedures Procedure Name Priority Date/Time Associated Diagnosis Comments POCT LIPID PANEL Routine 01/30/2025 1:15 PM CDT Coronary artery disease involving [place] coronary artery of [place] heart without angina pectoris Hyperlipidemia LDL goal <70 TRANSTHORACIC ECHO (TTE) COMPLETE W DOPPLER/CF WO CONTRAST Routine 01/26/2025 11:11 AM CDT Coronary artery disease involving [place] coronary artery of [place] heart without angina pectoris Cardiomyopathy, ischemic CT ABDOMEN PELVIS W CONTRAST Schedule Routine, Read Routine (OP Routine) 01/22/2025 11:25 AM CDT 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) EGFR Routine 01/15/2025 10:42 AM CDT 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) DIFFERENTIAL AUTO Routine 01/15/2025 10: 42 AM CDT 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) MISCELLANEOUS MOLECULAR SEND-OUT REQUEST Routine 01/15/2025 10:42 AM CDT 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) CBC WITH AUTO DIFFERENTIAL Routine 01/15/2025 10:42 AM CDT 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) COMPREHENSIVE METABOLIC PANEL Routine 01/15/2025 10:42 AM CDT 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) LACTATE DEHYDROGENASE Routine 01/15/2025 10:42 AM CDT 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) URIC ACID Routine 01/15/2025 10:42 AM CDT 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) HEPATITIS PANEL, ACUTE Routine 10/19/2023 11:12 PM DESIGN PAINTER from Last 3 Months or Most Recently Relevant to Health Maintenance Results * POCT lipid panel (01/30/2025 1:15 PM CDT) Cholesterol, POC 109 mg/dL HDL, POC 30 mg/dL Triglycerides, POC 65 mg/dL LDL Cholesterol POC 65 mg/dL Chol/HDL Ratio, POC 3.6 Non-HDL Cholesterol, POC 78 mg/dL Cholesterol Total, POC 109 mg/dL Capillary blood 01/30/2025 1 :15 PM CDT us Julio Lambert MD POINT OF CARE TEST ORDERA BLES Final Result * TRANSTHORACIC ECHO (TTE) COMPLETE W DOPPLER/CF WO CONTRAST (01/26/2025 11:11 AM CDT) LV EF 40-45 % CONS SCIMAGE Anatomical Region Laterality Modality Ultrasound 01/26/2025 10:5 3 AM CDT Narrative 01/26/2025 12:34 PM CDT [facility] Cardiology [address], [address], [place] [address] [phone] P:[phone] Echocardiographic Report Patient Name: SLIMEJERRY P : 1975 Study Date: 01/26/2025 10:53:17 AM Gender: M Tech: Location: EDW Ref Provider: JULIO LAMBERT Height(Cm): 178 BSA: 2.17 Weight(Kg): 95.3 Heart Rate: 57 BP: 127 / 86 Quality: Good Order Provider: JULIO LAMBERT PROCEDURES: Echocardiographic Report: Transthoracic echocardiogram with complete 2D, M-Mode, and color Doppler examination. With Strain Analysis. INDICATIONS: Coronary Artery Disease and I25.5 Ischemic cardiomyopathy. MEASUREMENTS: 2D/MM Value Range Doppler Value Range EF Mod BP 47 % [ 52 - 72 ] AV Mean PG 3 mmHg EF Teich MM 50 % [ 52 - 72 ] AV Peak Tera 1.22 m/s [ 1.00 - 1.70 ] Estimated EF 40-45 % AV Peak PG 6 mmHg LVIDd 2D 6.43 cm [ 4.20 - 5.80 ] AV VTI 26.14 cm LVIDd MM 6.42 cm [ 4.20 - 5.80 ] LVOT Peak Tera 0.93 m/s [ 0.70 - 1.10 ] LVIDs 2D 4.75 cm [ 2.50 - 4.00 ] LVOT VTI 19.47 cm LVIDs MM 4.74 cm [ 2.50 - 4.00 ] MV E Peak Tera 0.64 m/s [ 0.60 - 1.30 ] LVPWd 2D 0.82 cm [ 0.60 - 1.00 ] MV A Peak Tera 0.68 m/s [ 1.00 - 1.20 ] LVPWd MM 0.75 cm [ 0.60 - 1.00 ] MV Decel Time 217 msec [ 104 - 258 ] IVSd 2D 0.80 cm [ 0.60 - 1.00 ] PV Peak Tera 0.85 m/s [ 0.40 - 0.80 ] IVSd MM 1.04 cm [ 0.60 - 1.00 ] TR Peak Tera 2.24 m/s [ 1.00 - 2.80 ] LA Dimension MM 3.83 cm [ 3.00 - 4.00 ] TR Peak PG 20 mmHg AoR Diam MM 3.77 cm [ 3.10 - 3.70 ] RVSP 28.00 mmHg [ 10.00 - 36.00 ] LA Volume Index 26 cc/m2 [ 16 - 34 ] Lateral E` 0.11 m/s [ 0.10 - 0.15 ] ACS MM 2.39 cm [ 1.50 - 2.60 ] E/E` 6 2D/MM Value Range Doppler Value Range - FINDINGS: Interpretation Site: Exam was interpreted at [facility]. Left Ventricle: Mild enlargement of left ventricle cavity. Mild to moderate global left ventricular systolic dysfunction. Impaired diastolic relaxation Grade I. Ejection fraction is measured at 47 %. Ejection Fraction is visually estimated to be 40-45 %. Global Longitudinal Strain is -15 %. GLS is abnormal. Right Ventricle: Normal right ventricular size. Normal right ventricular systolic function. Left Atrium: There is mild enlargement of left atrium. Right Atrium: The right atrium is normal in size. Atrial Septum: Normal atrial septum. Mitral Valve: Normal appearance of the mitral valve. Mild mitral valve regurgitation. There is no hemodynamically significant mitral stenosis by Doppler. Aortic Valve: No evidence of hemodynamically significant aortic stenosis by Doppler. Aortic cusps appear mildly sclerotic. Trileaflet aortic valve. Trace aortic valve regurgitation. Tricuspid Valve: Normal appearance of the tricuspid valve. Normal right ventricular systolic pressure. Estimated peak RVSP is 28 mmHg. Mild tricuspid regurgitation. Pulmonic Valve: Normal appearance of the pulmonic valve. No pulmonic stenosis. Trivial regurgitation in the pulmonic valve. Pericardium: Normal pericardium with no significant pericardial effusion. Aorta: Aortic root is mildly dilated. IVC: Normal size and normal respiratory collapse consistent with normal right atrial pressure (<5 mmHg). CONCLUSIONS: Mild enlargement of left ventricle cavity. Mild to moderate global left ventricular systolic dysfunction. Impaired diastolic relaxation Grade I. Ejection fraction is measured at 47 %. Ejection Fraction is visually estimated to be 40-45 %. Global Longitudinal Strain is -15 %. GLS is abnormal. There is mild enlargement of left atrium. Mild mitral valve regurgitation. Mild tricuspid regurgitation. Normal sinus rhythm. Electronically Signed By: Julio Lambert MD 01/26/2025 12:33:25 PM CDT Procedure Note Juilo Lambert MD - 01/26/2025 [facility] Cardiology [address] [facility], [address], [place] [address] P:[phone] P:[phone] Echocardiographic Report Patient Name: JERRY PALENCIA P : 1975 Study Date: 01/26/2025 10:53:17 AM Gender: M Tech: Location: EDW Ref Provider: JULIO LAMBERT Height(Cm): 178 BSA: 2.17 Weight(Kg): 95.3 Heart Rate: 57 BP: 127 / 86 Quality: Good Order Provider: JULIO LAMBERT PROCEDURES: Echocardiographic Report: Transthoracic echocardiogram with complete 2D, M-Mode, and color Dopplerexamination. With Strain Analysis. INDICATIONS: Coronary Artery Disease and I25.5 Ischemic cardiomyopathy. MEASUREMENTS: 2D/MM Value Range Doppler ValueRange EF Mod BP 47 % [ 52 - 72 ] AV Mean PG 3mmHg EF Teich MM 50 % [ 52 - 72 ] AV Peak Tera 1.22m/s [ 1.00 - 1.70 ] Estimated EF 40-45 % AV Peak PG 6mmHg LVIDd 2D 6.43 cm [ 4.20 - 5.80 ] AV VTI 26.14cm LVIDd MM 6.42 cm [ 4.20 - 5.80 ] LVOT Peak Tera 0.93m/s [ 0.70 - 1.10 ] LVIDs 2D 4.75 cm [ 2.50 - 4.00 ] LVOT VTI 19.47cm LVIDs MM 4.74 cm [ 2.50 - 4.00 ] MV E Peak Tera 0.64m/s [ 0.60 - 1.30 ] LVPWd 2D 0.82 cm [ 0.60 - 1.00 ] MV A Peak Tera 0.68m/s [ 1.00 - 1.20 ] LVPWd MM 0.75 cm [ 0.60 - 1.00 ] MV Decel Time 217msec [ 104 - 258 ] IVSd 2D 0.80 cm [ 0.60 - 1.00 ] PV Peak Tera 0.85m/s [ 0.40 - 0.80 ] IVSd MM 1.04 cm [ 0.60 - 1.00 ] TR Peak Tera 2.24m/s [ 1.00 - 2.80 ] LA Dimension MM 3.83 cm [ 3.00 - 4.00 ] TR Peak PG 20mmHg AoR Diam MM 3.77 cm [ 3.10 - 3.70 ] RVSP 28.00mmHg [ 10.00 - 36.00 ] LA Volume Index 26 cc/m2 [ 16 - 34 ] Lateral E` 0.11m/s [ 0.10 - 0.15 ] ACS MM 2.39 cm [ 1.50 - 2.60 ] E/E` 6 2D/MM Value Range Doppler ValueRange - FINDINGS: Interpretation Site: Exam was interpreted at [facility]. Left Ventricle: Mild enlargement of left ventricle cavity. Mild to moderate global leftventricular systolic dysfunction. Impaired diastolic relaxation Grade I. Ejectionfraction is measured at 47 %. Ejection Fraction is visually estimated to be 40-45 %.Global Longitudinal Strain is -15 %. GLS is abnormal. Right Ventricle: Normal right ventricular size. Normal right ventricular systolicfunction. Left Atrium: There is mild enlargement of left atrium. Right Atrium: The right atrium is normal in size. Atrial Septum: Normal atrial septum. Mitral Valve: Normal appearance of the mitral valve. Mild mitral valve regurgitation.There is no hemodynamically significant mitral stenosis by Doppler. Aortic Valve: No evidence of hemodynamically significant aortic stenosis by Doppler.Aortic cusps appear mildly sclerotic. Trileaflet aortic valve. Trace aortic valveregurgitation. Tricuspid Valve: Normal appearance of the tricuspid valve. Normal right ventricularsystolic pressure. Estimated peak RVSP is 28 mmHg. Mild tricuspid regurgitation. Pulmonic Valve: Normal appearance of the pulmonic valve. No pulmonic stenosis. Trivialregurgitation in the pulmonic valve. Pericardium: Normal pericardium with no significant pericardial effusion. Aorta: Aortic root is mildly dilated. IVC: Normal size and normal respiratory collapse consistent with normal rightatrial pressure (<5 mmHg). CONCLUSIONS: Mild enlargement of left ventricle cavity. Mild to moderate global leftventricular systolic dysfunction. Impaired diastolic relaxation Grade I. Ejectionfraction is measured at 47 %. Ejection Fraction is visually estimated to be 40-45 %.Global Longitudinal Strain is -15 %. GLS is abnormal. There is mild enlargement of left atrium. Mild mitral valve regurgitation. Mild tricuspid regurgitation. Normal sinus rhythm. Electronically Signed By: Julio Lambert MD 01/26/2025 12:33:25 PM CDT us Julio Lambert MD CV ECHO PROCEDURES Final Result * CT Abdomen Pelvis W Contrast (01/22/2025 11:25 AM CDT) Anatomical Region Laterality Modality Body N/A Computed Tomogra phy 01/22/2025 2:00 PM CDT Impressions 01/22/2025 2:00 PM CDT 1. Thickening of the distal esophagus may be related to esophagitis. Consider gastroenterology follow-up. 2. No other acute findings. Electronically signed by: Jeremie Charles M.D. Narrative 01/22/2025 2:00 PM CDT EXAMINATION: CT ABDOMEN PELVIS W CONTRAST HISTORY: Abdominal/flank pain, stone suspected FINDINGS: Lung bases are unremarkable. No pleural effusion. Imaged base of heart is unremarkable. Thickening of the distal esophagus noted. Esophagus and stomach are nondistended. Spleen is unremarkable. Gallbladder is nondistended. The pancreas is normal. Adrenal glands are normal. Kidneys enhance symmetrically. 2 mm nonobstructing left lower pole renal stone. No bowel obstruction. No lymphadenopathy. Atherosclerosis of the thoracoabdominal aorta and its branches. Appendix is normal. No acute osseous abnormality. Procedure Note Jeremie Charles MD - 01/22/2025 EXAMINATION: CT ABDOMEN PELVIS W CONTRAST HISTORY: Abdominal/flank pain, stone suspected FINDINGS: Lung bases are unremarkable. No pleural effusion. Imaged base of heart is unremarkable. Thickening of the distal esophagus noted. Esophagus and stomach are nondistended. Spleen is unremarkable. Gallbladder is nondistended. The pancreas is normal. Adrenal glands are normal. Kidneys enhance symmetrically. 2 mm nonobstructing left lower pole renal stone. No bowel obstruction. No lymphadenopathy. Atherosclerosis of the thoracoabdominal aorta and its branches. Appendix is normal. No acute osseous abnormality. IMPRESSION: 1. Thickening of the distal esophagus may be related to esophagitis. Consider gastroenterology follow-up. 2. No other acute findings. Electronically signed by: Jeremie Charles M.D. Mala Camacho NP IMG CT PROCEDURES Fin al Result * NPM1 PCR send out to Lab PM[facility] -Miscellaneous Molecular Send-out Request (01/15/2025 10:42 AM CDT) Result 1 Test Name: NPM1 MRD NGS Assay (Lab PMM) Specimen Type: PB Result: See attached scanned report for results. Test name NPM1 MRD NGS Assay (Lab [facility]) [facility] Blood 01/15/2025 10:4 2 AM CDT 01/15/2025 1:28 PM CDT Narrative [facility] - 01/23/2025 9:12 AM CDT Test Requested:->NPM1 PCR send out to Lab PM[facility] Mala Camacho NP LAB GENETIC TESTING F inal Result [facility] Department [place] [address] * eGFR (01/15/2025 10:42 AM CDT) eGFR >90 >=60 mL/min/1. 73 m2 Comment: Interpretive Data Reference Interval Normal >/= 90 mL/min/1.73m2 Mildly decreased* 60 - 89 mL/min/1.73m2 Mildly to moderately decreased 45 - 59 mL/min/1.73m2 Moderately to severely decreased 30 - 44 mL/min/1.73m2 Severely decreased 15 - 29 mL/min/1.73m2 Kidney Failure < 15 mL/min/1.73m2 *Relative to young adult level Estimated glomerular filtration rate is determined by the 2020 CKD-EPI equation recommended by the National Kid[employer] (A Unifying Approach to GFR Estimation: Recommendations of the NKF-ASK Task Force on Reassessing the Inclusion of Race in Diagnosing Kidney Disease, JASN 202). The CKD-EPI equation should not be used for patients with unstable renal function and has not been validated in children and those over 70. Current interpretive data was last reviewed 2021. Blood 01/15/2025 10:4 2 AM CDT 01/15/2025 10:51 AM CDT us Mala Camacho NP LAB BLOOD ORDERABLES Final Result [facility] Department [place] [address] * Differential, auto (01/15/2025 10:42 AM CDT) [facility]
--- OUTSIDE RECORDS SUMMARY | 2025-03-07 10:26 | XMS_ITS | Continuity of Care Document ---
Author Organization [facility] Address [address] [place] [address] Care Team Providers Care [employer] Name Role Phone AL SETHI Primary Care Provider Assessment No assessment recorded. Plan of Treatment Reminders Order Date Submit Date Provider Last Modified By Organization Details Last Modified Time Details Appointments None recorded. Lab CBC 2024 025 [facility], [address] [place] [address], [place], [address], 10:24:51 CMP, serum or plasma 2024 025 [facility], [address] [place] [address], [place], [address], 10:24:49 lipid panel, serum 2024 025 [facility], [address] [place] [address], [place], [address], 10:24:48 Referral None recorded. Procedures None recorded. Surgeries None recorded. Imaging US, abdomen, complete 2024 025 [facility], [address] [place], [address], 14:32:23 Medication Orders tramadol 50 mg tablet 2024 025 [id number] , [place], [address], 14:24:51 Patient TargetsNo targets recorded. Patient Instructions Encounter Date Encounter Id Patient Instructions Last Modified By Organization Details Last Modified Time 03/06/2025 [id number] angina: care instructions tali Not available 03/06/2025 14:24:45 Reason for Referral None Reported. Procedures Surgical History Date Name Laterality Status Provider Name and Address Organization Details Recorded Time procedure on kidney completed Nasima Oliva MA [facility] 10/08/2023 10:03:11 Angioplasty With Stent completed Nasima Oliva MA [facility] 10/08/2023 10:03:47 Imaging Results None recorded. Procedure Notes None recorded. Medical Equipment None Reported. Allergies Allergen ID Allergen Name Allergen Category Reaction Reaction Severity Criticality Documentation Date Start Date Code Code System Note Provider Name and Address Organization Details Recorded Time 464255 meropenem medicatio n rash Not available Not available 12/10/2023 83843 [facility] 11:[facility]25 Medications Name Sig Start Date Stop [...] No t Available Vitals Date Recorded Body height Body mass index (BMI) Body weight Oxygen saturation Oxygen saturation in Arterial blood by Pulse oximetry Heart rate Respiratory rate Provider Name and Address Organization Details Last Updated DateTime 179.07 cm 29.6 kg/m2 19926.8 1 g 95 % 95 % 88 /min 16 /min Claudia Cash MA [facility] 14:03:01 Date Recorded Systolic blood pressure Diastolic blood pressure Provider Name and Address Organization Details Last Updated DateTime 03/06/2025 112 mm[Hg] 82 mm[Hg] Eve Ambrosio MA [facility] 03/06/2025 14:05:59 Social History Question Answer Notes LastModified by Organizat ion Details LastModified Time Tobacco Smoking Status Current Every Day Smoker Had a couple here Claudia Cash MA null, [facility] 03/06/2025 14:00:08 Are You Blind Or Do [...] use any illicit or recreational drugs? Yes Marijuanna Information not available 10/08/2023 Do you or [...] anxious, or unable to sleep at night)? [id number] [facility] Information not available 10/08/2023 Family History Relationship Description Onset Age of this Age Resolved Age Notes LastModified by Organization Details LastModified Time Father No current problems or disability [email or web address] Not available 11/25 11:24:49 Mother No current problems or disability [email or web address] Not available 11/25 11:24:50 Medical History Condition Response Coronary Artery Disease Y Other N Atrial Fibrillation N High Blood Pressure Y Thyroid Problems N Kidney or Bladder Problems Y GI Problems N Depression N COPD N Blood Clots N Eating Disorder N Skin Problems N Anemia N Heart Attack ([place]) Y Anxiety Disorder N Diabetes N Muscle, [...] mcg/0.3 mL dose 06/20/2021 completed Not Available [facility] 4 00:40:30 COVID-19, mRNA, LNP-S, PF, 30 mcg/0.3 mL dose 07/12/2021 completed Not [facility] 00:[facility]30 Tdap 03/30/2020 completed Eve Ambrosio MA [facility] [place] [facility] [place] 10/19/2023 12:56:23 Past Encounters Encounter ID Performer Location Encounter Start Date Encounter Closed Date Diagnosis/Indication Diagnosis SNOMED-CT Code Diagnosis ICD10 Code Diagnosis Note [id number] Oswaldo Cobos MD [facility] [address] [place] [address] 03/06/2025 13:39:38 03/06/2025 14:28:24 Acute myeloid leukemia in remission 17333459 C92.01 Left upper quadrant pain 358955295 R10.12 Angina pectoris 69708063 0 I20.9 Overweight in adulthood with body mass index of 25 or more but less than 30 333546367 Z68.29 History of myocardial infarction 687046815 I25.2 Multi vess el coronary artery disease 059608490 I25.10 addendum.. patient declined reports onset of chest pain...ekg ordered and nitro admin at 9:45...EMS was called..4 81mg ASA at 9:49 Health Concerns Section Related Observation LastModified by Organization Detai ls LastModified Time None Recorded Concern Status LastModified by Organization Details LastModified Time None Recorded Payers Encounter Date Sequence Insurance Name Policy Number Policy [place] Covered Member ID [place] Member ID Guarantor Name 03/06/2025 1 [facility] [id number] Hilario Jackson [id number] Hilario Jackson Notes Date Note Type Note Provider Name and Address Organization Details Recorded Time 03/06/2025 text/html hx of AML...also had [place] 10 years...has appt with oncology in march..has developed general malaise and feels pretty poor...has abdominal distension...sees GI in February..has stabbing pain in left abdomen sometimes intense enough to put him down..also reports chest pains coming on again that has been present from 10 years ago..sees cardiology had a stent in the maker... Al Sethi PA-C Attn: [employer]ing,[address] [place], [address], [place] - [facility] 03/06/2025 14:28:20
== END 2025-03-07 10:04 | disposition home or self-care (01) ==
LOC: CHSIMG 10:05
PROVIDERS: PCP Physician Assistant; Visit Provider Physician Assistant
DX: R10.12 Left upper quadrant pain (principal)
CPT/HCPCS: 76700